=== PATIENT | male | born 1940 | race Caucasian/White ===

== ENCOUNTER 2017-05-20 08:51 | Day surgery (SDC) | payer MEDICARE, BC ==
[2017-05-20] MEDS ORDERED: Sodium Chloride 0.9% 1,000 ML IV SCH (09:00)
[2017-05-20] MEDS ORDERED: Sodium Chloride 0.9% 5 ML Syringe FLUSH PRN (09:00)
[2017-05-20] MEDS ORDERED: fentaNYL 100 MCG/2 ML SDV ONE (09:36)
[2017-05-20] MEDS ORDERED: Propofol 200 MG/20 ML SDV ONE (09:36)
[2017-05-20] MEDS ORDERED: Midazolam 1 MG/ML 2 ML SDV ONE (09:36)
[2017-05-20] MEDS ORDERED: Midazolam 1 MG/ML 2 ML SDV IV ONE (11:22)
[2017-05-20] MEDS ORDERED: fentaNYL 100 MCG/2 ML SDV IV ONE (11:22)
[2017-05-20] MEDS ORDERED: Propofol 200 MG/20 ML SDV IV ONE (11:22)
--- NOTE | 2017-05-20 11:46 | PCM.OPNOTE ---
- General Post-Op/Procedure Note Date of Surgery/Procedure: 05/20/17 Operative Procedure(s): Colonoscopy Findings: normal colonoscopy no evidence of recurrent polyps noted. no definite evidence of malignancy. Anesthesia Technique: MAC Primary Surgeon: Kayode Chand Complications: None Condition: Good Free Text/Narrative:: INFORMED CONSENT: Patient is here today for elective colonoscopy. All aspects of this procedure have been discussed with the patient. All possible complications also, including possibility of perforation, infection, pain, bleeding and unknown complications. In the event of perforation patient may need to have abdominal exploration, colon resection, colostomy and even was discussed. Anesthetic complications were handled by anesthesia department. The patient understands fully well. Patient did not have any further questions for me at the end of my interview. The patient wishes for me to proceed. PREOPERATIVE DIAGNOSIS/INDICATIONS: [history of colon polyps] POSTOPERATIVE DIAGNOSIS: [normal without any recurrence of colon polyps] INSTRUMENT USED: Olympus videocolonoscope. ASA CLASSIFICATION: [2] ANESTHESIA: Continuous EKG, oximetry and intermittent blood pressure and respiratory monitoring were performed throughout the procedure. IV Versed and Fentanyl were administered. PROCEDURE PERFORMED: Colonoscopy POSITIONS OF PATIENT: Left lateral. RECTUM: Normal. SIGMOID COLON: Multiple diverticula seen. DESCENDING COLON: Normal. SPLENIC FLEXURE: Normal. TRANSVERSE COLON: Normal. HEPATIC FLEXURE: Normal. ASCENDING COLON: Normal. CECUM: Normal. ILEOCECAL VALVE: Normal. BIOPSY: None. TOLERANCE: Excellent. COMPLICATIONS: None.
[2017-05-20 13:45] VITALS: BP 125/66
== END 2017-05-20 13:20 | disposition home or self-care (01) ==
LOC: KA.SDS 08:51
PROVIDERS: ATTEND Family Medicine
DX: Z12.11 Encounter for screening for malignant neoplasm of colon (principal); K57.30 Diverticulosis of large intestine without perforation or abscess without bleeding; Z86.010 Personal history of colon polyps; I25.10 Atherosclerotic heart disease of native coronary artery without angina pectoris; I10 Essential (primary) hypertension; E78.00 Pure hypercholesterolemia, unspecified; E11.9 Type 2 diabetes mellitus without complications; E78.5 Hyperlipidemia, unspecified; Z79.82 Long term (current) use of aspirin; Z79.899 Other long term (current) drug therapy; Z88.0 Allergy status to penicillin; Z88.8 Allergy status to other drugs, medicaments and biological substances
CPT/HCPCS: 00810; 82962; G0105; J2250; J2704; J3010; J7030

== ENCOUNTER 2017-10-11 17:45 | Inpatient (IN) | payer MEDICARE, BC ==
[2017-10-11] MEDS ORDERED: Levofloxacin/Dextrose 5%-Water 250 MG in Premix Bag 1 BAG IV SCH (18:00)
[2017-10-11] MEDS ORDERED: guaiFENesin 100 MG/5 ML Soln 10 ML UD Cup PO PRN (18:00)
[2017-10-11] MEDS ORDERED: Levofloxacin/Dextrose 5%-Water 500 MG in Premix Bag 1 BAG IV SCH (18:00)
[2017-10-11] MEDS: Sodium Chloride 0.9% 1,000 ML IV SCH (18:49)
[2017-10-11] MEDS ORDERED: Levofloxacin/Dextrose 5%-Water 500 MG in Premix Bag 1 BAG IV ONE (19:15)
[2017-10-11] MEDS ORDERED: Ibuprofen 600 MG Tab PO PRN (19:51)
[2017-10-11] MEDS: Levofloxacin/Dextrose 5%-Water 500 MG in Premix Bag 1 BAG IV SCH (20:06)
[2017-10-11] MEDS: Calcium Citrate/Vitamin D3 315 MG-250 Unit Tab PO SCH (20:31)
[2017-10-11] MEDS ORDERED: amLODIPine 5 MG Tab PO SCH (21:00)
[2017-10-11] MEDS ORDERED: hydrALAZINE 25 MG Tab PO SCH (21:00)
[2017-10-11] MEDS ORDERED: methylPREDNISolone Sodium Succinate 125 MG/2 ML SDV IVPUSH ONE (21:15)
[2017-10-11] MEDS: Aspirin 81 MG Tab.EC PO SCH (22:11)
[2017-10-11] MEDS: Albuterol/Ipratropium 3.0-0.5 MG/3 ML Neb Soln NEB SCH (22:12)
[2017-10-11] MEDS: Acetaminophen 650 MG Tab.ER PO SCH (22:12)
[2017-10-12] MEDS: Albuterol/Ipratropium 3.0-0.5 MG/3 ML Neb Soln NEB SCH ×4 (06:01→22:28)
[2017-10-12 07:44] LABS: CHLORIDE,CL 99 mmol/L (98-115); SODIUM,NA 136 mmol/L (136-145)
[2017-10-12] MEDS: Sodium Chloride 0.9% 1,000 ML IV SCH (10:34)
[2017-10-12] MEDS: Hydrochlorothiazide 25 MG Tab PO SCH (10:35)
[2017-10-12] MEDS: Aspirin 81 MG Tab.EC PO SCH ×2 (10:35→21:02)
[2017-10-12] MEDS: Rosuvastatin 10 MG Tab PO SCH (10:36)
[2017-10-12] MEDS: Folic Acid 1 MG Tab PO SCH (10:36)
[2017-10-12] MEDS: Fish Oil/Omega-3 Fatty Acids 1 Gm Cap PO SCH (10:36)
[2017-10-12] MEDS: Multivitamins with Minerals/Iron/Folic Acid/Lycopene Tab PO SCH (10:36)
[2017-10-12] MEDS: Calcium Citrate/Vitamin D3 315 MG-250 Unit Tab PO SCH ×2 (10:37→20:52)
[2017-10-12] MEDS: Cholecalciferol (Vitamin D3) 1,000 Unit Tab PO SCH (10:37)
[2017-10-12] MEDS: Lutein/Minerals/Vitamins A, C & E Tab PO SCH (10:37)
[2017-10-12] MEDS: Acetaminophen 650 MG Tab.ER PO SCH ×2 (10:37→21:03)
[2017-10-12] MEDS: amLODIPine 5 MG Tab PO SCH (10:38)
[2017-10-12] MEDS: Finasteride 5 MG Tab PO SCH (10:38)
[2017-10-12] MEDS ORDERED: Levofloxacin/Dextrose 5%-Water 100 ML IV ONE (19:36)
[2017-10-12] MEDS: Levofloxacin/Dextrose 5%-Water 250 MG in Premix Bag 1 BAG IV SCH (19:39)
[2017-10-12] MEDS: Levofloxacin/Dextrose 5%-Water 500 MG in Premix Bag 1 BAG IV SCH (20:47)
[2017-10-12] MEDS ORDERED: amLODIPine 5 MG Tab PO SCH (21:00)
[2017-10-12] MEDS ORDERED: PSYLLIUM PO SCH (21:00)
[2017-10-12] MEDS: Tamsulosin 0.4 MG Cap.ER PO SCH (21:02)
[2017-10-12] MEDS: Niacin 500 MG Tab PO SCH (21:02)
[2017-10-13] MEDS: Sodium Chloride 0.9% 1,000 ML IV SCH (02:11)
[2017-10-13] MEDS: Albuterol/Ipratropium 3.0-0.5 MG/3 ML Neb Soln NEB SCH ×4 (06:00→22:42)
[2017-10-13] MEDS: Rosuvastatin 10 MG Tab PO SCH (08:14)
[2017-10-13] MEDS: Aspirin 81 MG Tab.EC PO SCH ×2 (08:14→20:56)
[2017-10-13] MEDS: Lutein/Minerals/Vitamins A, C & E Tab PO SCH (08:14)
[2017-10-13] MEDS: Calcium Citrate/Vitamin D3 315 MG-250 Unit Tab PO SCH ×2 (08:14→20:56)
[2017-10-13] MEDS: Acetaminophen 650 MG Tab.ER PO SCH ×2 (08:14→20:55)
[2017-10-13] MEDS: Multivitamins with Minerals/Iron/Folic Acid/Lycopene Tab PO SCH (08:14)
[2017-10-13] MEDS: Finasteride 5 MG Tab PO SCH (08:14)
[2017-10-13] MEDS: Cholecalciferol (Vitamin D3) 1,000 Unit Tab PO SCH (08:15)
[2017-10-13] MEDS: Hydrochlorothiazide 25 MG Tab PO SCH (08:15)
[2017-10-13] MEDS: Fish Oil/Omega-3 Fatty Acids 1 Gm Cap PO SCH (08:15)
[2017-10-13] MEDS: Folic Acid 1 MG Tab PO SCH (08:15)
[2017-10-13] MEDS: Niacin 500 MG Tab PO SCH ×2 (08:18→20:56)
[2017-10-13] MEDS ORDERED: TRIAMCINOLONE ACETONIDE NS SCH (09:00)
--- NOTE | 2017-10-13 10:08 | PN ---
10/13/2017 PATIENT NAME: LELA WEBB SUBJECTIVE: This is a 76-year-old gentleman who was having fatigue. Was not feeling well at home. He had a slight cough, but not really a bad cough. The patient was not feeling well. He denies any fever or chills at home. He came in the clinic and found to have a left lower lobe pneumonia. He was admitted to the hospital on Saturday. He seems to be doing better. He is out walking the halls today. He says he does occasionally cough and it is a deep cough, but he really does not cough a lot. He has not had any fever since right after admission when after he was admitted a fever of 102.2. Blood cultures have been negative. At this point, the patient seems to be doing well. He acts that he go home. He has been eating well. OBJECTIVE: VITAL SIGNS: Today, temperature is 98.9, pulse is 64, blood pressure is 122/70, respiratory rate 16, oxygen saturation 94% on room air. GENERAL: This is an elderly white male, in no acute distress. CARDIAC: Heart tones are regular rate and rhythm. No murmurs identified. LUNGS: Lung sounds are clear throughout lung devine except for in the left lower base. He has very loud crackles. ABDOMEN: Soft, nontender, nondistended. Bowel sounds present x4. EXTREMITIES: No pedal edema noted. LABORATORY DATA: The patient's lab work that was obtained today. CBC shows a white count elevated at 13.1, hemoglobin stable at 11.3. The patient's neutrophil percentage is still elevated at 87. Glucose this morning was 169. IMPRESSION AND PLAN: 1. Left lower lobe pneumonia. Blood cultures and sputum cultures are showed no growth at this point. The patient does have some ibuprofen, he can have for fever, but he has not had a fever since right after admission. We will continue with IV antibiotic therapy of Levaquin 500 mg intravenously daily. Continue with DuoNeb every 6 hours. The patient may have Robitussin as needed for cough. The patient seems to be slowly improving. We will repeat a chest x-ray in the morning. 2. History of hypertension with episode of hypotension when he was admitted with dehydration. Plan, the patient's blood pressure has been very stable at this time. We are going to continue to hold his Norvasc and hold his hydralazine at this time. We are continued to give his HCTZ 25 mg daily. We stopped IV fluids this morning. We will continue watch his blood pressure and possibly maybe restart him back on his hypertensive medications tomorrow if his blood pressure starts to raise. 3. History of benign prostatic hypertrophy. Plan, we will continue with Proscar 5 mg daily and Flomax 0.4 mg daily. 4. History of hyperlipidemia. Plan, continue with fish oil with omega-3 along with Crestor 5 mg daily. OVERALL PLAN: The patient seems to be improving. If he is doing well tomorrow morning, may consider discharging him home. /[id number]/MODL MTDD
[2017-10-13] MEDS: Levofloxacin/Dextrose 5%-Water 250 MG in Premix Bag 1 BAG IV SCH (19:39)
[2017-10-13] MEDS: Tamsulosin 0.4 MG Cap.ER PO SCH (20:55)
[2017-10-13] MEDS: Levofloxacin/Dextrose 5%-Water 500 MG in Premix Bag 1 BAG IV SCH (20:57)
[2017-10-14] MEDS: Albuterol/Ipratropium 3.0-0.5 MG/3 ML Neb Soln NEB SCH (05:11)
[2017-10-14 06:33] VITALS: BP 143/69
--- NOTE | 2017-10-14 08:12 | PN ---
10/12/2017PATIENT NAME: LELA WEBB SUBJECTIVE: This is a 76-year-old male patient who presented to the [facility] with concerns about just feeling weak and tired and having no energy. He states he did not really have a cough and he did have a fever. He just was not feeling good. He knew something was wrong. Upon further evaluation, the patient was seen to have a lower lobe pneumonia. The patient then was admitted to the [facility] for further evaluation at that time. OBJECTIVE: VITAL SIGNS: Today temperature is 97.7, pulse is 57, blood pressure is 98/57, respiratory rate is 16, oxygen saturations is 92%. The patient did have a fever last night of 102.2. Ibuprofen was given. GENERAL: This is an elderly white male in no acute distress. CARDIAC: Heart tones are regular rate and rhythm. No murmurs identified. ABDOMEN: Soft, nontender, nondistended. Bowel sounds present x4. EXTREMITIES: No pedal edema. PULMONARY: Lung sounds are clear in upper lobes, diminished at bilateral bases. No wheezing or crackles noted on exam. LABORATORY DATA: The patient's lab work that was drawn this morning. CBC shows white count elevated at 11.8, hemoglobin stable at 12.0. Chemistry panel this morning is unremarkable except for glucose is elevated. The patient's lactic acid that was drawn yesterday was elevated at 2.5. The patient's ALT and AST were both elevated. AST was 163 this morning and ALT was 172. IMPRESSION AND PLAN: 1. Left lower lobe pneumonia. Plan, we will continue with Levaquin 500 mg IV daily along with DuoNeb every six hours. The patient did receive a one time dose of Solu-Medrol last evening 40 mg IV for wheezing. No wheezing today. We will continue with Robitussin as needed for cough and congestion. The patient states his cough is better today. He had a low coughing spell last night. Blood culture and sputum cultures are pending at this time. We will continue with ibuprofen as needed for fever. 2. History of hypertension with acute episode of acute hypotension, most likely due to dehydration. Plan, we are going to continue to hold the patient's Norvasc along with holding his hydralazine. We are going to go ahead and give him his HCTZ 25 mg daily. We will continue with IV hydration of normal saline at 75 mL/h. Monitor blood pressures. 3. History of BPH. Plan, continue with Proscar 5 mg daily along with Flomax 0.4 mg daily. 4. History of hyperlipidemia. Plan, continue with fish oil with omega-3 and Crestor 5 mg daily. OVERALL PLAN: The patient seems to be improving with Levaquin. We will continue with current therapy and plan for discharge possibly on Saturday. /[id number]/MODL MTDD
[2017-10-14] MEDS: Multivitamins with Minerals/Iron/Folic Acid/Lycopene Tab PO SCH (09:16)
[2017-10-14] MEDS: Calcium Citrate/Vitamin D3 315 MG-250 Unit Tab PO SCH (09:16)
[2017-10-14] MEDS: Hydrochlorothiazide 25 MG Tab PO SCH (09:16)
[2017-10-14] MEDS: Fish Oil/Omega-3 Fatty Acids 1 Gm Cap PO SCH (09:16)
[2017-10-14] MEDS: Aspirin 81 MG Tab.EC PO SCH (09:16)
[2017-10-14] MEDS: Folic Acid 1 MG Tab PO SCH (09:16)
[2017-10-14] MEDS: Rosuvastatin 10 MG Tab PO SCH (09:16)
[2017-10-14] MEDS: amLODIPine 5 MG Tab PO SCH (09:17)
[2017-10-14] MEDS: Finasteride 5 MG Tab PO SCH (09:17)
[2017-10-14] MEDS: Lutein/Minerals/Vitamins A, C & E Tab PO SCH (09:17)
[2017-10-14] MEDS: Acetaminophen 650 MG Tab.ER PO SCH (09:17)
[2017-10-14] MEDS: Cholecalciferol (Vitamin D3) 1,000 Unit Tab PO SCH (09:18)
[2017-10-14] MEDS: Niacin 500 MG Tab PO SCH (09:18)
--- NOTE | 2017-10-15 08:10 | DISCH ---
ADMITTING DIAGNOSIS: Left lower lobe pneumonia. DISCHARGE DIAGNOSIS: Mild left basilar pneumonia. BRIEF HISTORY AND ESSENTIAL PHYSICAL FINDINGS: This is a 76-year-old gentleman who was having some fatigue. He was not feeling well at home. He had a slight cough but was not really coughing bad. The patient was not feeling well. He denied any fever or chills at home. He came in clinic and found out that he had a left lower lobe pneumonia. He was admitted to the [facility] on Saturday. The patient did improve with IV antibiotic therapy. He had a fever of 102.2 at the time of admission. SIGNIFICANT LABS XRAYS AND CONSULTATION FINDINGS: The patient's lab work on admission showed a lactic acid elevated at 2.5. Repeat lab work on 10/12/2017 showed a white count elevated at 11.8. Repeat lab work on 10/13/2017 showed a white count elevated at 13.1. Lab work that was obtained on the day of discharge was [id number]. CBC showed a white count within normal range at 8.2, hemoglobin 11.66. Chest x-ray that was obtained on day of discharge would be 10/14/2017. The impression reads mild new left basilar infiltrate. This was read by Dr. Juan Stokes, radiologist. COURSE IN HOSPITAL WITH COMPLICATIONS IF ANY: Throughout the hospital stay, the patient had a fever upon admission, he had no further fevers after that. The patient never did not complain of a cough. He had a very occasional cough. It was a deep cough. He denied coughing up any phlegm. The patient states his energy level improved. He just felt better. He was out walking in the halls with no fatigue or shortness of breath. No fevers. He felt really good, and wanted to go home. CONDITION TREATMENT AND FINAL DISPOSITION ON DISCHARGE AND PROGNOSIS: Condition is stable. Final disposition will be home with his . IMPRESSION AND PLAN: 1. Left lower lobe pneumonia. Plan: The patient's sputum and blood cultures are no growth at this point. I am going to send the patient home on Levaquin 500 mg daily. He does have Robitussin cough syrup, he will take at home. Chest x-ray shows improvement from the one in the clinic with the one today prior to discharge. The patient will follow up in the clinic with Nely Koenig PA-C on Saturday for followup. The patient's white count is in normal range today, 8.2. 2. History of hypertension with some hypotension while in the hospital. The patient's blood pressures returned to normal limits. We will send him back home on his normal medications Norvasc 10 mg daily, hydralazine as ordered, and we will continue the HCTZ 25 mg daily. No change in blood pressure medications. Follow up in the clinic on Saturday. 3. History of BPH. Plan: Continue with the patient's Proscar 5 mg daily along with Flomax 0.4 mg daily. 4. History of hyperlipidemia. Plan: Continue with fish oil with [place]-3 along with Crestor 5 mg daily. OVERALL PLAN: The patient has been doing really well and improving quickly while in the hospital. No shortness of breath. Cough has improved. No fevers. Energy has improved. The patient will follow up in the clinic with Nely Koenig PA-C on Saturday. We will continue with Levaquin 500 mg daily along with cough syrup at home. The patient will possibly need repeat x-ray in clinic on Saturday at followup. /[id number]/MODL MTDD
== END 2017-10-14 10:15 | disposition home or self-care (01) | DRG 195 ==
LOC: KA.MS 18:00
PROVIDERS: ADMIT Physician Assistant Medical; ATTEND Family Medicine
DX: J18.9 Pneumonia, unspecified organism (principal); I10 Essential (primary) hypertension; I95.9 Hypotension, unspecified; E78.5 Hyperlipidemia, unspecified; N40.0 Benign prostatic hyperplasia without lower urinary tract symptoms; E11.9 Type 2 diabetes mellitus without complications; Z79.899 Other long term (current) drug therapy; Z88.0 Allergy status to penicillin; Z88.8 Allergy status to other drugs, medicaments and biological substances
CPT/HCPCS: 36415; 71020; 80053; 82962; 83605; 85025; 87040; 94640; A9270-GY; J1956; J2930; J7030

== ENCOUNTER 2017-10-21 12:40 | Observation (INO) | payer MEDICARE, BC ==
--- NOTE | 2017-10-21 13:32 | EDM.PDOC ---
ED HPI GENERAL MEDICAL PROBLEM - General Chief Complaint: Syncope Stated Complaint: PASSED OUT Time Seen by Provider: 10/21/17 13:10 Source of Information: Reports: Patient, Family () History Limitations: Reports: No Limitations - History of Present Illness INITIAL COMMENTS - FREE TEXT/NARRATIVE: Patient presents to ER after a syncopal episode at work about 1.5 hours ago. He remembers feeling sweaty and put his coat on to step outside for fresh air then fell flat on his face. He did have LOC but denies any pain except the pain in his nose. He specifically denies any pain in chest, jaw, arm, neck, extremities; except he does have stiffness in the back of his neck from the fall. He had two stents placed 11 years ago but denies any AL or other heart problems. No vision changes. - Related Data Allergies Allergy/AdvReac Type Severity Reaction Status Date / Time Penicillins Allergy Rash Verified 10/21/17 13:09 terazosin [From Hytrin] Allergy Fainting Verified 10/21/17 13:09 Home Meds: Home Meds Acetaminophen [Tylenol Arthritis] 650 mg PO BID 05/07/17 [History] Aspirin [Halfprin] 81 mg PO BID 05/07/17 [History] Calcium Carb/Vit D3/Minerals [Cvs Calcium Chewables Plus Tab] 1 each PO DAILY [History] Cholecalciferol (Vitamin D3) [Vitamin D3] 1,000 unit PO DAILY 05/07/17 [History] Finasteride [Proscar] 5 mg PO DAILY 05/07/17 [History] Fish Oil/[place]-3 Fatty Acids [Fish Oil] 1 each PO DAILY 05/07/17 [History] Folic Acid 1 mg PO DAILY 05/07/17 [History] Hydrochlorothiazide 25 mg PO DAILY 05/07/17 [History] Multivitamin with Minerals [Multiple Vitamin] 1 tab PO DAILY 05/07/17 [History] Mv-Mn/FA/Vit K/Lycop/Lut/Zeaxa [Ocuvite Eye + Multi Tablet] 1 each PO DAILY [History] Niacin [Slo-Niacin] 1,000 mg PO BID 05/07/17 [History] Psyllium [Metamucil] 1.04 gm PO BID 05/07/17 [History] Triamcinolone Acetonide [Nasacort] 2 sprays NS DAILY 05/07/17 [History] Valsartan [Diovan] 320 mg PO DAILY 05/07/17 [History] amLODIPine [Norvasc] 10 mg PO BEDTIME 05/07/17 [History] hydrALAZINE [Apresoline] 25 mg PO DAILY 05/07/17 [History] Tamsulosin HCl [Flomax] 0.4 mg PO BEDTIME 05/08/17 [History] Rosuvastatin [Crestor] 5 mg PO DAILY 05/20/17 [History] Levofloxacin [Levaquin] 500 mg PO Q24H 5 Days #5 tablet 10/14/17 [Rx] Past Medical History HEENT History: Reports: Cataract, Hard of Hearing, Impaired Vision, Macular Degeneration Cardiovascular History: Reports: CAD, High Cholesterol, Hypertension, Stents Gastrointestinal History: Reports: Colon Polyp Genitourinary History: Reports: Prostate Disorder Endocrine/Metabolic History: Reports: Diabetes, Type II Oncologic (Cancer) History: Reports: Prostate - Infectious Disease History Infectious Disease History: Reports: Chicken Pox, Measles, Mumps, Rubella - Past Surgical History HEENT Surgical History: Reports: Cataract Surgery Cardiovascular Surgical History: Reports: Coronary Artery Stent GI Surgical History: Reports: Cholecystectomy, Colonoscopy, Hernia, Abdominal Male Surgical History: Reports: Prostate Biopsy, Other (See Below) Other Male Surgeries/Procedures: Kryo surgery Social & Family History - Family History Family Medical History: Noncontributory - Tobacco Use Smoking Status *Q: Never Smoker Second Hand Smoke Exposure: Yes - Caffeine Use Caffeine Use: Reports: Coffee, Soda, Tea - Recreational Drug Use Recreational Drug Use: No ED ROS GENERAL - Review of Systems Review Of Systems: See Below Constitutional: Reports: Diaphoresis. Denies: Fever, Chills, Weakness HEENT: Denies: Ear Discharge, Throat Pain, Vision Change Respiratory: Denies: Shortness of Breath, Cough Cardiovascular: Reports: Syncope. Denies: Chest Pain GI/Abdominal: Denies: Abdominal Pain, Anorexia, Nausea, Vomiting : Reports: No Symptoms Musculoskeletal: Denies: Neck Pain, Shoulder Pain, Arm Pain, Back Pain, Hand Pain, Leg Pain, Foot Pain, Joint Pain Skin: Reports: Diaphoresis. Denies: Cyanosis, Jaundice, Mottled, Pallor Neurological: Reports: Syncope. Denies: Confusion, Dizziness, Headache, Seizure , Trouble Speaking Psychiatric: Denies: Agitation, Anxiety, Confusion - Physical Exam Exam: See Below Exam Limited By: No Limitations General Appearance: Alert, WD/WN, No Apparent Distress Eye Exam: Bilateral Eye: EOMI (with full visual devine), Normal Inspection, PERRL Ears: Normal External Exam, Normal Canal, Hearing Grossly Normal, Normal TMs Nose: Normal Inspection, No Blood. No: Nasal Deformity Throat/Mouth: Normal Inspection, Normal Lips, Normal Oropharynx, Normal Voice, No Airway Compromise Head Exam: Normocephalic, Facial Abrasions (nose, upper lip and left cheek) Neck: Supple, Tender Lateral, Other (currently in C-collar that was placed on ER arrival; CT of c-spine pending. After normal C-spine CT C-collar was removed and neck re-examined with full pain-free ROM and no midline tenderness.) . No: Tender Midline Respiratory/Chest: No Respiratory Distress, Lungs Clear, Normal Breath Sounds, No Accessory Muscle Use, Chest Non-Tender, Other (After WBC of 16.4 was found I re-auscultated the lungs which are actually quite clear with only mildly decreased lung sounds in left lung base.) Cardiovascular: Normal Peripheral Pulses, Regular Rate, Rhythm, No Edema, No Gallop, No Murmur GI/Abdominal: Normal Bowel Sounds, Soft, Non-Tender, No Organomegaly, No Distention Neuro Exam (Abbreviated): Alert, Oriented, CN II-XII Intact, Normal Cognition, No Motor/Sensory Deficits Back Exam: Normal Inspection, Full Range of Motion. No: Paraspinal Tenderness, Vertebral Tenderness Extremities: Normal Inspection, Normal Range of Motion, Non-Tender, No Pedal Edema, Other (5/5 strength bilat) Psychiatric: Normal Affect, Normal Mood Skin Exam: Warm, Dry, Intact, Normal Color, No Rash Course - Vital Signs Last Recorded V/S: Last Vital Signs Temp 95.6 F 10/21/17 12:57 Pulse 82 10/21/17 15:22 Resp 12 10/21/17 15:22 BP 134/50 L 10/21/17 15:22 Pulse Ox 95 10/21/17 15:22 - Orders/Labs/Meds Orders: Active Orders 24 hr Category Date Time Status EKG Documentation Completion [RC] ASDIRECTED Care 10/21/17 13:33 Active Cervical Spine wo Cont [CT] Stat Exams 10/21/17 13:05 Taken Chest 2V [CR] Stat Exams 10/21/17 14:25 Taken Fingers Third Digit Lt F2 [CR] Stat Exams 10/21/17 15:04 Ordered Head wo Cont [CT] Stat Exams 10/21/17 13:05 Ordered CULTURE BLOOD [BC] Stat Lab 10/21/17 14:26 Ordered CULTURE BLOOD [BC] Stat Lab 10/21/17 14:26 Ordered LACTIC ACID [CHEM] Stat Lab 10/21/17 14:25 Ordered UA W/MICROSCOPIC [URIN] Stat Lab 10/21/17 14:25 Uncollected Blood Culture x2 Reflex Set [OM.PC] Stat Oth 10/21/17 14:25 Ordered EKG 12 Lead [EK] Routine Ther 10/21/17 13:33 Ordered Medication Orders Acetaminophen (Tylenol Arthritis Pain) 650 mg PO BID [facility] Aspirin (Halfprin) 81 mg PO BID [facility] Finasteride (Proscar) 5 mg PO DAILY [facility] Hydralazine HCl (Apresoline) 25 mg PO DAILY [facility] Hydrochlorothiazide (Hydrochlorothiazide) 25 mg PO DAILY [facility] Levofloxacin (Levaquin) 500 mg PO Q24H [facility] Multivitamins/Minerals (Ocuvite) 1 each PO DAILY [facility] Niacin (Niacin) 1,000 mg PO BID [facility] Non-Formulary Medication (Amlodipine [Norvasc]) 10 mg PO BEDTIME [facility] Non-Formulary Medication (Calcium Carb/Vit D3/Minerals [Cvs Calcium Chewables Plus Tab]) 1 each PO DAILY [facility] Non-Formulary Medication (Cholecalciferol (Vitamin D3) [Vitamin D3]) 1,000 unit PO DAILY [facility] Non-Formulary Medication (Triamcinolone Acetonide [Nasacort]) 2 sprays NS DAILY [facility] Psyllium Husk (Metamucil Sugar Free) 1 pkt PO BID [facility] Rosuvastatin Calcium (Crestor) 5 mg PO DAILY [facility] Tamsulosin HCl (Flomax) 0.4 mg PO BEDTIME [facility] Valsartan (Diovan) 320 mg PO DAILY [facility] Labs: Laboratory Tests 10/21/17 10/21/17 Range/Units 13:45 13:45 WBC 16.4 H (5.0-10.0) 10^3/uL RBC 4.70 (4.50-6.00) 10^6/uL Hgb 14.0 (13.0-17.0) g/dL Hct 42.7 (40.0-52.0) % MCV 90.7 (82.0-92.0) fL MCH 29.7 (27.0-31.0) pg MCHC 32.7 (32.0-36.0) g/dL RDW 12.4 (11.5-14.5) % Plt Count 352 H (150-300) 10^3/uL MPV 7.4 (7.4-10.4) fL Neut % (Auto) 88.0 H (50.0-70.0) % Lymph % (Auto) 7.7 L (20.0-40.0) % [place] % (Auto) 3.6 (2.0-8.0) % Eos % (Auto) 0.1 L (1.0-3.0) % Baso % (Auto) 0.6 (0.0-1.0) % Neut # (Auto) 14.4 H (2.5-7.0) 10^3/uL Lymph # (Auto) 1.3 (1.0-4.0) 10^3/uL [place] # (Auto) 0.6 (0.1-0.8) 10^3/uL Eos # (Auto) 0.0 L (0.1-0.3) 10^3/uL Baso # (Auto) 0.1 (0.0-0.1) 10^3/uL Sodium 141 (136-145) mmol/L Potassium 5.1 (3.3-5.3) mmol/L Chloride 104 (98-115) mmol/L Carbon Dioxide 28.6 (21.0-32.0) mmol/L BUN 27 H (6-25) mg/dL Creatinine 1.20 H (0.51-1.17) mg/dL Est Cr Clr Drug Dosing 49.08 mL/min Estimated GFR (MDRD) 59 mL/min Glucose 134 H (70-110) mg/dL Calcium 9.6 (8.7-10.3) mg/dL Troponin I 0.05 (0.00-0.070) ng/mL Meds: Medications Generic Name Dose Route Start Last Admin Trade Name Freq PRN Reason Stop Dose Admin Acetaminophen 650 mg 10/21/17 21:00 Tylenol Arthritis Pain PO BID [facility] Aspirin 81 mg 10/21/17 21:00 Halfprin PO BID [facility] Finasteride 5 mg 10/22/17 09:00 Proscar PO DAILY [facility] Hydralazine HCl 25 mg 10/22/17 09:00 Apresoline PO DAILY [facility] Hydrochlorothiazide 25 mg 10/22/17 09:00 Hydrochlorothiazide PO DAILY [facility] Levofloxacin 500 mg 10/21/17 15:15 Levaquin PO Q24H [facility] Multivitamins/Minerals 1 each 10/22/17 09:00 Ocuvite PO DAILY [facility] Niacin 1,000 mg 10/21/17 21:00 Niacin PO BID [facility] Non-Formulary Medication 10 mg 10/21/17 21:00 Amlodipine [Norvasc] PO BEDTIME [facility] Non-Formulary Medication 1 each 10/22/17 09:00 Calcium Carb/Vit D3/Minerals [Cvs Calcium Chewables Plus Tab] PO DAILY [facility] Non-Formulary Medication 1,000 unit 10/22/17 09:00 Cholecalciferol (Vitamin D3) [Vitamin D3] PO DAILY [facility] Non-Formulary Medication 2 sprays 10/22/17 09:00 Triamcinolone Acetonide [Nasacort] NS DAILY [facility] Psyllium Husk 1 pkt 10/21/17 21:00 Metamucil Sugar Free PO BID [facility] Rosuvastatin Calcium 5 mg 10/22/17 09:00 Crestor PO DAILY [facility] Tamsulosin HCl 0.4 mg 10/21/17 21:00 Flomax PO BEDTIME [facility] Valsartan 320 mg 10/22/17 09:00 Diovan PO DAILY [facility] - Re-Assessments/Exams Free Text/Narrative Re-Assessment/Exam: 10/21/17 14:17 WBC is 16.4 and one week ago (when discharged from hospitalization with pneumonia) was 8.2, ANC is 14.4 and was 6.4. 10/21/17 14:35 Re-examination finds quite normal lung sounds with mildly decreased sounds at left lung base. Will get CXR and UA to further evaluate infectious etiology along with blood cultures, lactic acid. Will likely need to admit. Patient states he has been taking the daily Levaquin 500 mg that he was discharged on a week ago and has two tablets left. 10/21/17 15:[address] Graham who feels it would be appropriate to either admit for observation or close follow up tomorrow in clinic. One of the factors for observation being his syncopal episode. After discussing with patient and his will admit for observation. Pt also mentions that he forgot he dislocated his left long finger at the PIP joint when he fell. He pulled this back into position and it is just slightly sore right now. On exam it has full ROM with mild ecchymosis volarly at the PIP and slight pain on full flexion. Will get xray and admit for obs. Lactic acid and finger xray still pending at admission. Departure - Departure Time of Disposition: 15:17 Disposition: Refer to Observation Condition: Good Clinical Impression: Neutrophilic leukocytosis Episode of syncope Qualifiers: Encounter type: initial encounter - Discharge Information - My Orders Last 24 Hours: My Active Orders 10/21/17 13:05 Cervical Spine wo Cont [CT] Stat Head wo Cont [CT] Stat 10/21/17 13:33 EKG Documentation Completion [RC] ASDIRECTED EKG 12 Lead [EK] Routine 10/21/17 14:25 Chest 2V [CR] Stat LACTIC ACID [CHEM] Stat UA W/MICROSCOPIC [URIN] Stat Blood Culture x2 Reflex Set [OM.PC] Stat 10/21/17 14:26 CULTURE BLOOD [BC] Stat CULTURE BLOOD [BC] Stat 10/21/17 15:04 Fingers Third Digit Lt F2 [CR] Stat - Assessment/Plan Last 24 Hours: My Active Orders 10/21/17 13:05 Cervical Spine wo Cont [CT] Stat Head wo Cont [CT] Stat 10/21/17 13:33 EKG Documentation Completion [RC] ASDIRECTED EKG 12 Lead [EK] Routine 10/21/17 14:25 Chest 2V [CR] Stat LACTIC ACID [CHEM] Stat UA W/MICROSCOPIC [URIN] Stat Blood Culture x2 Reflex Set [OM.PC] Stat 10/21/17 14:26 CULTURE BLOOD [BC] Stat CULTURE BLOOD [BC] Stat 10/21/17 15:04 Fingers Third Digit Lt F2 [CR] Stat
[2017-10-21] MEDS ORDERED: Levofloxacin 500 MG Tab PO SCH (15:15)
[2017-10-21] MEDS ORDERED: Lidocaine 2% 100 MG/5 ML Syringe IVPUSH PRN (16:10)
[2017-10-21] MEDS ORDERED: Atropine 0.1 MG/ML 10 ML Syringe IVPUSH PRN (16:10)
[2017-10-21] MEDS ORDERED: EPINEPHrine 1:10,000 1 MG/10 ML Syringe IVPUSH PRN (16:10)
[2017-10-21] MEDS ORDERED: Nitroglycerin 0.4 MG Tab.SL SL PRN (16:10)
--- NOTE | 2017-10-21 19:07 | PCM.HP ---
H&P History of Present Illness - General Date of Service: 10/21/17 Admit Problem/Dx: Syncope Source of Information: Patient, Old Records, Provider History Limitations: Reports: No Limitations - History of Present Illness Initial Comments - Free Text/Narative: Mr. Funes reports feeling at his baseline until this morning when he felt lightheaded a few times with ambulation. Around 1140, he felt lightheaded and "clammy" after standing and walked outside and fell forward onto his face. He briefly had LOC, but otherwise had no preceding or surrounding symptoms, including any headache, vision change, chest pain, palpitations, or shortness of breath. He was not noted to have any seizure like activity or have loss of bowel or bladder function. He was evaluated in the [facility] ED where work-up was notable for unremarkable VS and EKG, normal head CT/C-spine CT/CXR, elevated WBC, and elevated creatinine. Upon my evaluation of the patient on the evening of admission, he states he feels completely at his baseline and has had no untoward symptoms since arrival. Since recent discharge from the hospital for pneumonia, he has had resolution of respiratory symptoms and has two doses left of levofloxacin. He has been taking his other home medications as scheduled without difficulty. He does state that his blood pressure has been running on the low side at times lately and he has intermittently felt lightheaded with standing quickly. He also admits to having a little less fluid intake in the last 24 hours. He denies any other symptoms and otherwise feels quite well. He denies a history of syncopal episodes. - Related Data Allergies/Adverse Reactions: Allergies Allergy/AdvReac Type Severity Reaction Status Date / Time Penicillins Allergy Rash Verified 10/21/17 13:09 terazosin [From Hytrin] Allergy Fainting Verified 10/21/17 13:09 Home Medications: Home Meds Acetaminophen [Tylenol Arthritis] 650 mg PO BID 05/07/17 [History] Aspirin [Halfprin] 81 mg PO BID 05/07/17 [History] Calcium Carb/Vit D3/Minerals [Cvs Calcium Chewables Plus Tab] 1 each PO DAILY [History] Cholecalciferol (Vitamin D3) [Vitamin D3] 1,000 unit PO DAILY 05/07/17 [History] Finasteride [Proscar] 5 mg PO DAILY 05/07/17 [History] Fish Oil/[place]-3 Fatty Acids [Fish Oil] 1 each PO DAILY 05/07/17 [History] Folic Acid 1 mg PO DAILY 05/07/17 [History] Hydrochlorothiazide 25 mg PO DAILY 05/07/17 [History] Multivitamin with Minerals [Multiple Vitamin] 1 tab PO DAILY 05/07/17 [History] Mv-Mn/FA/Vit K/Lycop/Lut/Zeaxa [Ocuvite Eye + Multi Tablet] 1 each PO DAILY [History] Niacin [Slo-Niacin] 1,000 mg PO BID 05/07/17 [History] Psyllium [Metamucil] 1.04 gm PO BID 05/07/17 [History] Triamcinolone Acetonide [Nasacort] 2 sprays NS DAILY 05/07/17 [History] Valsartan [Diovan] 320 mg PO DAILY 05/07/17 [History] amLODIPine [Norvasc] 10 mg PO BEDTIME 05/07/17 [History] Tamsulosin HCl [Flomax] 0.4 mg PO BEDTIME 05/08/17 [History] Rosuvastatin [Crestor] 5 mg PO DAILY 05/20/17 [History] Levofloxacin [Levaquin] 500 mg PO Q24H 5 Days #5 tablet 10/14/17 [Rx] Past Medical History HEENT History: Reports: Cataract, Hard of Hearing, Impaired Vision, Macular Degeneration Cardiovascular History: Reports: CAD, High Cholesterol, Hypertension, Stents Gastrointestinal History: Reports: Colon Polyp Genitourinary History: Reports: Prostate Disorder Endocrine/Metabolic History: Reports: Diabetes, Type II Oncologic (Cancer) History: Reports: Prostate - Infectious Disease History Infectious Disease History: Reports: Chicken Pox, Measles, Mumps, Rubella - Past Surgical History HEENT Surgical History: Reports: Cataract Surgery Cardiovascular Surgical History: Reports: Coronary Artery Stent GI Surgical History: Reports: Cholecystectomy, Colonoscopy, Hernia, Abdominal Male Surgical History: Reports: Prostate Biopsy, Other (See Below) Other Male Surgeries/Procedures: Kryo surgery Social & Family History - Family History Family Medical History: Noncontributory - Tobacco Use Smoking Status *Q: Never Smoker Second Hand Smoke Exposure: No - Caffeine Use Caffeine Use: Reports: Coffee - Alcohol Use Days Per Week of Alcohol Use: 0 - Recreational Drug Use Recreational Drug Use: No H&P Review of Systems - Review of Systems: Review Of Systems: See Below General: Denies: Fever, Chills, Malaise, Weakness, Fatigue, Night Sweats, Diaphoresis, Decreased Appetite, Weight Loss, Weight Gain HEENT: Denies: Ear Pain, Headaches, Post Nasal Drip, Sinus Congestion, Vertigo, Visual Changes Pulmonary: Denies: Shortness of Breath, Wheezing, Pleuritic Chest Pain, Cough, Sputum, Hemoptysis Cardiovascular: Denies: Chest Pain, Palpitations, Dyspnea on Exertion, Edema Gastrointestinal: Denies: Abdominal Pain, Constipation, Diarrhea, Decreased Appetite Genitourinary: Denies: Dysuria, Frequency, Burning, Pain Musculoskeletal: Denies: Neck Pain, Shoulder Pain, Arm Pain, Back Pain, Leg Pain , Joint Swelling, Muscle Pain, Muscle Stiffness Skin: Denies: Bruising, Rash, Wound Psychiatric: Denies: Confusion, Depression, Anxiety, Hallucinations (Auditory) Neurological: Denies: Confusion, Dizziness, Headache, Numbness, Paresthesia, Seizure, Tingling, Tremors, Trouble Speaking, Difficulty Walking, Weakness, Change in Speech, Gait Disturbance Exam - Exam Exam: See Below - Vital Signs Vital Signs: Last Vital Signs Temp 37.1 C 10/21/17 18:44 Pulse 90 10/21/17 18:44 Resp 16 10/21/17 18:44 BP 129/78 10/21/17 18:44 Pulse Ox 95 10/21/17 18:44 Weight: 81.374 kg - Exam Physical Exam Comments:: GENERAL: Well-appearing elderly white male sitting in bedside chair in no acute distress. HEENT: Normocephalic, atraumatic. Conjunctiva clear, pupils equal round and reactive to light, extraocular movements intact with mild lateral nystagmus bilaterally. Nares patent without discharge. Mucous membranes moist, posterior pharynx unremarkable. NECK: Supple, no masses. CV: Regular rate and rhythm, no murmurs, rubs, or gallops. 2+ radial pulses. PULMONARY: Normal effort, clear to auscultation bilaterally, no wheezes, rales, or rhonchi. ABDOMEN: Positive bowel sounds, soft, nontender, nondistended. EXTREMITIES: No edema, cyanosis, or clubbing. MUSCULOSKELETAL: Moves all extremities well. NEUROLOGICAL: CN II-XII intact. Moves all extremities well. DERMATOLOGIC: No rashes or suspicious lesions in exposed areas. PSYCHIATRIC: Alert, interactive, appropriate affect. - Patient Data Lab Results Last 24 hrs: Laboratory Results - last 24 hr 10/21/17 Range/Units 15:15 Lactic Acid 1.7 (0.4-2.0) mmol/L Result Diagrams: 10/21/17 13:45 10/21/17 13:45 *Q Meaningful Use (ADM) - VTE *Q VTE Criteria *Q: - Stroke *Q Stroke Criteria *Q: - AMI *Q AMI Criteria *Q: Problem List Initiated/Reviewed/Updated: Yes Orders Last 24hrs: Active Orders 24 hr Category Date Time Status Cardiac Monitoring [RC] . DIRECTED Care 10/21/17 16:02 Active Heart Healthy Diet [DIET] Diet 10/21/17 Dinner Active Acetaminophen [Tylenol Arthritis Pain] Med 10/21/17 21:00 Active 650 mg PO BID Aspirin [Halfprin] Med 10/21/17 21:00 Active 81 mg PO BID Atropine [Atropine 0.1 MG/ML] Med 10/21/17 16:10 Active 0 mg IVPUSH ASDIRECTED PRN Calcium Citrate/Vitamin D3 [Calcium Citrate + D] Med 10/22/17 09:00 Active 2 tab PO DAILY Cholecalciferol (Vitamin D3) [Vitamin D3] Med 10/22/17 09:00 Active 1,000 units PO DAILY EPINEPHrine [EPINEPHrine 1:10,000] Med 10/21/17 16:10 Active 1 mg IVPUSH ASDIRECTED PRN Finasteride [Proscar] Med 10/22/17 09:00 Active 5 mg PO DAILY Hydrochlorothiazide Med 10/22/17 09:00 Active 25 mg PO DAILY Levofloxacin [Levaquin] Med 10/21/17 15:15 Hold 500 mg PO Q24H Lidocaine 2% [Xylocaine 2%] Med 10/21/17 16:10 Active 0 mg IVPUSH ASDIRECTED PRN Lutein/Minerals/Vit A,C & E [Ocuvite] Med 10/22/17 09:00 Active 1 each PO DAILY Niacin Med 10/21/17 21:00 Active 1,000 mg PO BID Nitroglycerin [Nitrostat] Med 10/21/17 16:10 Active 0.4 mg SL ASDIRECTED PRN Psyllium Husk/Aspartame [Metamucil Sugar Free] Med 10/21/17 21:00 Active 1 pkt PO BID Rosuvastatin [Crestor] Med 10/22/17 09:00 Active 5 mg PO DAILY Sodium Chloride 0.9% [Normal Saline] 1,000 ml Med 10/21/17 16:04 Active IV ASDIRECTED Tamsulosin [Flomax] Med 10/21/17 21:00 Active 0.4 mg PO BEDTIME Triamcinolone Acetonide [Nasacort] Med 10/22/17 09:00 Active 2 sprays NS DAILY Valsartan [Diovan] Med 10/22/17 09:00 Active 320 mg PO DAILY amLODIPine [Norvasc] Med 10/21/17 21:00 Active 10 mg PO BEDTIME Medication Orders Acetaminophen (Tylenol Arthritis Pain) 650 mg PO BID [facility] Amlodipine Besylate (Norvasc) 10 mg PO BEDTIME [facility] Aspirin (Halfprin) 81 mg PO BID [facility] Atropine Sulfate (Atropine 0.1 Mg/Ml) 0 mg IVPUSH ASDIRECTED PRN PRN Reason: Heart Calcium Citrate (Calcium Citrate + D) 2 tab PO DAILY [facility] Cholecalciferol (Vitamin D3) 1,000 units PO DAILY [facility] Epinephrine HCl (Epinephrine 1:10,000) 1 mg IVPUSH ASDIRECTED PRN PRN Reason: Heart Finasteride (Proscar) 5 mg PO DAILY [facility] Hydrochlorothiazide (Hydrochlorothiazide) 25 mg PO DAILY [facility] Sodium Chloride (Normal Saline) 1,000 mls @ 125 mls/hr IV ASDIRECTED [facility] Levofloxacin (Levaquin) 500 mg PO Q24H [facility] Last Admin: 10/21/17 17:39 Dose: Lidocaine HCl (Xylocaine 2%) 0 mg IVPUSH ASDIRECTED PRN PRN Reason: Heart Multivitamins/Minerals (Ocuvite) 1 each PO DAILY [facility] Niacin (Niacin) 1,000 mg PO BID [facility] Nitroglycerin (Nitrostat) 0.4 mg SL ASDIRECTED PRN PRN Reason: Heart Non-Formulary Medication (Triamcinolone Acetonide [Nasacort]) 2 sprays NS DAILY [facility] Psyllium Husk (Metamucil Sugar Free) 1 pkt PO BID [facility] Rosuvastatin Calcium (Crestor) 5 mg PO DAILY [facility] Tamsulosin HCl (Flomax) 0.4 mg PO BEDTIME [facility] Valsartan (Diovan) 320 mg PO DAILY [facility] Assessment/Plan Comment:: Mr. Funes is a 76yoM with history notable for recent admission for pneumonia and history of CAD s/p remote stenting who sustained syncopal episode on the morning of 10/21/17. In the ED, work-up was notable for unremarkable VS and EKG, normal head CT/C-spine CT/CXR, elevated WBC, and elevated creatinine. Due to concern regarding these findings in the setting of his history, he was admitted for observation. # Syncope # Acute kidney injury # Leukocytosis # Community acquired pneumonia History and work-up most consistent with vasovagal event as the etiology of his syncope. This is corroborated by the mild acute kidney injury present on labs and lack of other concerning historical details or work-up. The leukocytosis is not obviously infectious in origin given the lack of infectious symptoms or signs and otherwise unremarkable work-up; he did receive steroids during his last hospitalization which could be contributing, as could the acute stress reaction of the syncopal event. Pulmonary exam and CXR do not suggest inadequately treated pneumonia and the patient denies any respiratory complaints. - Cardiac monitoring - NS @ 125cc/hr - Continue levofloxacin - Recheck CBC and BMP in AM - Await blood culture results Chronic conditions: # Coronary artery disease # Hypertension # Hyperlipidemia # BPH # Chronic rhinitis - Continue home medications Hospitalization details: # FEN: NS @ 125cc/hr. Electrolytes normal. Heart healthy diet. # PPX: Will initiate tomorrow if not discharged. # Code status: FULL. # Emergency contact: . # Disposition: Admit to observation status for above conditions. Anticipate discharge to home, likely tomorrow, pending clinical course.
[2017-10-21] MEDS: Aspirin 81 MG Tab.EC PO SCH (20:49)
[2017-10-21] MEDS: Psyllium Husk Powder Sugar Free 5.85 GM Packet PO SCH (20:50)
[2017-10-21] MEDS: Acetaminophen 650 MG Tab.ER PO SCH (20:50)
[2017-10-21] MEDS: Niacin 500 MG Tab PO SCH (20:59)
[2017-10-21] MEDS ORDERED: amLODIPine 5 MG Tab PO SCH (21:00)
[2017-10-21] MEDS ORDERED: Tamsulosin 0.4 MG Cap.ER PO SCH (21:00)
[2017-10-21] MEDS: Sodium Chloride 0.9% 1,000 ML IV SCH (22:30)
[2017-10-22] MEDS: Sodium Chloride 0.9% 1,000 ML IV SCH (01:05)
[2017-10-22 07:59] LABS: CHLORIDE,CL 106 mmol/L (98-115); SODIUM,NA 141 mmol/L (136-145)
[2017-10-22] MEDS: Acetaminophen 650 MG Tab.ER PO SCH (08:28)
[2017-10-22] MEDS: Psyllium Husk Powder Sugar Free 5.85 GM Packet PO SCH (08:29)
[2017-10-22] MEDS: Aspirin 81 MG Tab.EC PO SCH (08:29)
[2017-10-22] MEDS: Niacin 500 MG Tab PO SCH (08:32)
[2017-10-22] MEDS ORDERED: Rosuvastatin 10 MG Tab PO SCH (09:00)
[2017-10-22] MEDS ORDERED: Finasteride 5 MG Tab PO SCH (09:00)
[2017-10-22] MEDS ORDERED: Lutein/Minerals/Vitamins A, C & E Tab PO SCH (09:00)
[2017-10-22] MEDS ORDERED: TRIAMCINOLONE ACETONIDE NS SCH (09:00)
[2017-10-22] MEDS ORDERED: Calcium Citrate/Vitamin D3 315 MG-250 Unit Tab PO SCH (09:00)
[2017-10-22] MEDS ORDERED: Hydrochlorothiazide 25 MG Tab PO SCH (09:00)
[2017-10-22] MEDS ORDERED: Cholecalciferol (Vitamin D3) 1,000 Unit Tab PO SCH (09:00)
[2017-10-22] MEDS ORDERED: hydrALAZINE 25 MG Tab PO SCH (09:00)
[2017-10-22 10:35] VITALS: BP 123/64
--- NOTE | 2017-10-23 08:31 | DISCH ---
He was admitted into observation on 10/21/2017, discharged from observation 10/22/2017. FINAL DIAGNOSES: 1. Syncope, likely vasovagal in nature. 2. Acute kidney injury. 3. Leukocytosis. 4. Community-acquired pneumonia. Other chronic conditions include coronary artery disease, hypertension, hyperlipidemia, BPH, and chronic rhinitis. BRIEF HISTORY: Edd is a 76-year-old gentleman who was recently admitted for pneumonia. He continues on Levaquin. He does have a history of coronary artery disease with remote stenting. He did sustain a syncope episode the morning of admission. He fell on his face and the ED workup was notable for unremarkable vital signs and EKG. He did have a head CT. See report below. He had elevated white count; however, he had been on steroids. He does have a history of recent pneumonia with elevated creatinine level. He was admitted in observation overnight, given IV fluids, cardiac monitoring. HOSPITAL COURSE: Hospital course was very short. He did well. He had no ectopy or aberrancy on overnight telemetry. He had no shortness of breath. No chest pain. No more episodes of syncope. He did receive isotonic saline fluids at 125 an hour. We continued with Levaquin. He did well. He was ready for discharge. He did have a white count of 16.4 on admission, it was down to 10.8. Neutrophilia with shifting right, now 76%, high of 88% on admission. Sodium, potassium, BUN, and creatinine are now normal. It was 27 and 1.20 on admission. Glucose 138. Lactic acid was normal. Calcium and troponin were normal and negative. DIAGNOSTICS: CT of the cervical spine without IV contrast shows no acute fracture other than grade 1 anterolisthesis with degenerative changes chronic. EKG, I reviewed, normal sinus rhythm. QTc normal at 460. Chest x-ray, no acute process, no pneumothorax, no effusions. PHYSICAL EXAM ON DISCHARGE: VITAL SIGNS: Temperature 98.0, blood pressure 112/61, heart rate 75 and regular, O2 sats 94%, respiratory rate 16. GENERAL: Patient is alert and oriented, lucid. NECK: Negative carotid bruits. CARDIOVASCULAR: Regular rate and rhythm. LUNGS: Clear. NOSE: Does have slightly edematous and erythematous nose with some abrasions noted. LABORATORY DATA: Microbiology negative. MEDICATIONS: No medication changes. DISPOSITION: The patient desires to be discharged from observation. He will follow myself next week. He is to report any syncope episodes. He has no carotid bruits. Does have a history of coronary stents. Two years ago, he did have a carotid ultrasound. We will recommend repeating carotid ultrasound on outpatient schedule. I will see him next week. /[id number]/MODL
== END 2017-10-22 11:10 | disposition home or self-care (01) ==
LOC: KA.ED 12:40 → KA.MS 15:09
PROVIDERS: ADMIT Physician Assistant Surgical; ATTEND Family Medicine
DX: R55 Syncope and collapse (principal); N17.9 Acute kidney failure, unspecified; D72.829 Elevated white blood cell count, unspecified; J18.9 Pneumonia, unspecified organism; I25.10 Atherosclerotic heart disease of native coronary artery without angina pectoris; I10 Essential (primary) hypertension; E78.5 Hyperlipidemia, unspecified; E11.9 Type 2 diabetes mellitus without complications; N40.0 Benign prostatic hyperplasia without lower urinary tract symptoms; J31.0 Chronic rhinitis; Z88.0 Allergy status to penicillin; Z88.8 Allergy status to other drugs, medicaments and biological substances; Z79.82 Long term (current) use of aspirin; Z79.899 Other long term (current) drug therapy; Z90.49 Acquired absence of other specified parts of digestive tract; Z95.5 Presence of coronary angioplasty implant and graft
CPT/HCPCS: 36415; 70450; 71020; 72125; 73140; 80048; 83605; 84484; 85025; 87040; 93005; 96360; 96361; 99284; A9270; G0378; J7030; 99283

== ENCOUNTER 2018-08-03 15:57 | Emergency (ER) | payer MEDICARE, BC ==
[2018-08-03 16:09] VITALS: BP 142/68
[2018-08-03] MEDS ORDERED: Sodium Chloride 0.9% 5 ML Syringe FLUSH PRN (16:27)
--- NOTE | 2018-08-03 16:43 | EDM.PDOC ---
ED HPI GENERAL MEDICAL PROBLEM - General Chief Complaint: Upper Extremity Injury/Pain Stated Complaint: RIGHT SHOULDER PAIN Time Seen by Provider: 08/03/18 16:03 Source of Information: Reports: Patient History Limitations: Reports: No Limitations - History of Present Illness INITIAL COMMENTS - FREE TEXT/NARRATIVE: Patient is a 77-year-old gentleman who presents to the emergency department this afternoon with a complaint of right shoulder and right chest pain. Patient states that the shoulder pain began about 3-4 weeks ago, over last few days his progressed to right chest and down right arm. 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 States initially thought this was the issue and did go to chiropractor, however, did not get relief. He went to the chiropractor on Saturday, but symptoms became worse yesterday and today. Patient and are now concerned about chest pain. Patient denies fever, shortness of breath, similar symptoms in the past, nausea, vomiting, diarrhea, headache, blurry vision, palpitations, or recent change in any medication. Onset: Gradual Duration: Week(s): Location: Reports: Chest, Upper Extremity, Right Quality: Reports: Ache Severity: Mild Improves with: Reports: None Worsens with: Reports: Movement Context: Reports: Activity Associated Symptoms: Reports: Chest Pain. Denies: Fever/Chills, Nausea/Vomiting , Shortness of Breath Right Shoulder Pain Score (Numeric/FACES): 8 - Related Data Allergies Allergy/AdvReac Type Severity Reaction Status Date / Time Penicillins Allergy Rash Verified 08/03/18 16:09 terazosin [From Hytrin] Allergy Fainting Verified 08/03/18 16:09 Home Meds: Home Meds Acetaminophen [Tylenol Arthritis] 650 mg PO BID 05/07/17 [History] Aspirin [Halfprin] 81 mg PO BID 05/07/17 [History] Cholecalciferol (Vitamin D3) [Vitamin D3] 1,000 unit PO DAILY 05/07/17 [History] Finasteride [Proscar] 5 mg PO DAILY 05/07/17 [History] Fish Oil/[place]-3 Fatty Acids [Fish Oil 1,000 MG] 1 each PO DAILY 05/07/17 [ History] Folic Acid 1 mg PO DAILY 05/07/17 [History] Hydrochlorothiazide 25 mg PO DAILY 05/07/17 [History] Multivitamin with Minerals [Multiple Vitamin] 1 tab PO DAILY 05/07/17 [History] Mv-Mn/FA/Vit K/Lycop/Lut/Zeaxa [Ocuvite Eye + Multi Tablet] 1 each PO DAILY [History] Niacin [Slo-Niacin] 1,000 mg PO BID 05/07/17 [History] Psyllium [Metamucil] 1 dose PO BID 05/07/17 [History] Triamcinolone Acetonide [Nasacort] 2 sprays NS DAILY 05/07/17 [History] Valsartan [Diovan] 320 mg PO DAILY 05/07/17 [History] amLODIPine [Norvasc] 10 mg PO BEDTIME 05/07/17 [History] Tamsulosin HCl [Flomax] 0.4 mg PO BEDTIME 05/08/17 [History] Ca/D3/Mag#11/Zinc/Product Test Engineer/Jaxon/Bor [Caltrate Plus Tablet] 1 each PO DAILY 08/03/18 [ History] Past Medical History HEENT History: Reports: Cataract, Hard of Hearing, Impaired Vision, Macular Degeneration Cardiovascular History: Reports: CAD, High Cholesterol, Hypertension, Stents Gastrointestinal History: Reports: Colon Polyp Genitourinary History: Reports: Prostate Disorder Endocrine/Metabolic History: Reports: Diabetes, Type II Oncologic (Cancer) History: Reports: Prostate - Infectious Disease History Infectious Disease History: Reports: Chicken Pox, Measles, Mumps, Rubella - Past Surgical History HEENT Surgical History: Reports: Cataract Surgery Cardiovascular Surgical History: Reports: Coronary Artery Stent GI Surgical History: Reports: Cholecystectomy, Colonoscopy, Hernia, Abdominal Male Surgical History: Reports: Prostate Biopsy, Other (See Below) Other Male Surgeries/Procedures: Kryo surgery Social & Family History - Family History Family Medical History: Noncontributory - Tobacco Use Smoking Status *Q: Never Smoker - Caffeine Use Caffeine Use: Reports: Coffee - Recreational Drug Use Recreational Drug Use: No Review of Systems - Review of Systems Review Of Systems: ROS reveals no pertinent complaints other than HPI. Constitutional: Reports: No Symptoms Eyes: Reports: No Symptoms Ears: Reports: No Symptoms Nose: Reports: No Symptoms Mouth/Throat: Reports: No Symptoms Respiratory: Reports: No Symptoms Cardiovascular: Reports: No Symptoms GI/Abdominal: Reports: No Symptoms Genitourinary: Reports: No Symptoms Musculoskeletal: Reports: Shoulder Pain (Right), Arm Pain (Right) Skin: Reports: No Symptoms Neurological: Reports: No Symptoms Psychiatric: Reports: No Symptoms ED EXAM, GENERAL - Physical Exam Exam: See Below Exam Limited By: No Limitations General Appearance: Alert, WD/WN, No Apparent Distress Eye Exam: Bilateral Eye: Normal Inspection Nose: Normal Inspection Throat/Mouth: Normal Inspection, Normal Oropharynx, No Airway Compromise Head: Atraumatic, Normocephalic Neck: Normal Inspection, Supple, Non-Tender, Full Range of Motion Respiratory/Chest: No Respiratory Distress, Lungs Clear, Normal Breath Sounds, No Accessory Muscle Use, Other (Minimal tenderness to right lateral chest with range of motion and palpation. No crepitus. No erythema, no edema, no ecchymosis.) Cardiovascular: No Murmur, Extra Beats, Irregularly Irregular GI/Abdominal: Normal Bowel Sounds, Soft, Non-Tender, No Organomegaly, No Distention, No Abnormal Bruit, No Mass Back Exam: Normal Inspection. No: CVA Tenderness (L), CVA Tenderness (R) Extremities: No Pedal Edema, Arm Pain (Shoulder and Right upper extremity tenderness to palpation and range of motion.) Neurological: Alert, Oriented, CN II-XII Intact, Normal Cognition, No Motor/ Sensory Deficits Psychiatric: Normal Affect, Normal Mood Skin Exam: Warm, Dry, Intact, Normal Color, No Rash Lymphatic: No Adenopathy (Of right axilla) EKG INTERPRETATION EKG Date: 08/03/18 Time: 17:00 Rate (Beats/Min): 63 ST-T: Elevated EKG Interpretation Comments: Inferior posterior infarct STEMI with underlying atrial fibrillation Course - Vital Signs Last Recorded V/S: Last Vital Signs Temp 97 F 08/03/18 16:05 Pulse 55 L 08/03/18 16:05 Resp 16 08/03/18 16:05 BP 142/68 H 08/03/18 16:05 Pulse Ox 96 08/03/18 16:05 - Orders/Labs/Meds Orders: Active Orders 24 hr Category Date Time Status Cardiac Monitoring [RC] . DIRECTED Care 08/03/18 16:27 Ordered EKG Documentation Completion [RC] ASDIRECTED Care 08/03/18 16:27 Ordered Peripheral IV Care [RC] . DIRECTED Care 08/03/18 16:27 Ordered Chest 1V Frontal [CR] Stat Exams 08/03/18 16:27 Ordered CBC WITH AUTO DIFF [HEME] Stat Lab 08/03/18 16:27 Ordered COMPREHENSIVE METABOLIC PN,CMP [CHEM] Stat Lab 08/03/18 16:27 Ordered TROPONIN I [CHEM] Stat Lab 08/03/18 16:27 Ordered Sodium Chloride 0.9% [Syrex Flush] Med 08/03/18 16:27 Ordered 5 ml FLUSH Q8HR PRN Peripheral IV Insertion Adult [OM.PC] Stat Oth 08/03/18 16:27 Ordered EKG 12 Lead [EK] Stat Ther 08/03/18 16:27 Ordered - Radiology Interpretation Free Text/Narrative:: Chest x-ray shows no acute cardiopulmonary process - Re-Assessments/Exams Free Text/Narrative Re-Assessment/Exam: 08/03/18 17:43 Patient afebrile, vital signs stable. Discussed case with Dr. Randhawa, cardiology from [facility]. Will accept patient for immediate transfer via ground ambulance. Patient given 180 mg Brilinta and 4000 of heparin. Departure - Departure Time of Disposition: 17:41 Disposition: DC/Tfer to Acute Hospital 02 Condition: Serious Clinical Impression: STEMI (ST elevation myocardial infarction) Qualifiers: Involved coronary artery: unspecified coronary artery Qualified Code(s): I21.3 - ST elevation (STEMI) myocardial infarction of unspecified site Chest pain Qualifiers: Chest pain type: chest pain due to myocardial ischemia Ischemic chest pain type : unspecified angina pectoris type Qualified Code(s): I25.9 - Chronic ischemic heart disease, unspecified - Discharge Information Referrals: Kayode Chand MD [Primary Care Provider] - - My Orders Last 24 Hours: My Active Orders 08/03/18 16:27 Cardiac Monitoring [RC] . DIRECTED EKG Documentation Completion [RC] ASDIRECTED Peripheral IV Care [RC] . DIRECTED Chest 1V Frontal [CR] Stat CBC WITH AUTO DIFF [HEME] Stat COMPREHENSIVE METABOLIC PN,CMP [CHEM] Stat TROPONIN I [CHEM] Stat Sodium Chloride 0.9% [Syrex Flush] 5 ml FLUSH Q8HR PRN Peripheral IV Insertion Adult [OM.PC] Stat EKG 12 Lead [EK] Stat - Assessment/Plan Last 24 Hours: My Active Orders 08/03/18 16:27 Cardiac Monitoring [RC] . DIRECTED EKG Documentation Completion [RC] ASDIRECTED Peripheral IV Care [RC] . DIRECTED Chest 1V Frontal [CR] Stat CBC WITH AUTO DIFF [HEME] Stat COMPREHENSIVE METABOLIC PN,CMP [CHEM] Stat TROPONIN I [CHEM] Stat Sodium Chloride 0.9% [Syrex Flush] 5 ml FLUSH Q8HR PRN Peripheral IV Insertion Adult [OM.PC] Stat EKG 12 Lead [EK] Stat Assessment:: Acute STEMI RI Plan: Transfer to [facility]
[2018-08-03] MEDS: Aspirin 81 MG Tab.Chew PO ONE (17:00)
[2018-08-03] MEDS: Aspirin 81 MG Tab.Chew ONE (17:00)
[2018-08-03 17:31] LABS: ANION GAP 22.2 mmol/L (5-15); CHLORIDE,CL 103 mmol/L (98-115); SODIUM,NA 147 mmol/L (136-145)
[2018-08-03] MEDS: Ticagrelor 90 MG Tab PO ONE ×2 (17:39→19:07)
[2018-08-03] MEDS: Heparin Sodium 5,000 Units/ML Vial IVPUSH ONE (17:39)
[2018-08-03] MEDS: Heparin Sodium 5,000 Units/ML Vial ONE (19:07)
--- OUTSIDE RECORDS SUMMARY | 2018-08-07 13:41 | XMSREPORT | Summary of Care ---
:1940 Author Organization and [facility] Address [address] [place] [address] Phone Care Team Providers Name Role Phone Tabatha Chand MD Primary Care Provider Nely Koenig Attributed Provider Reason for Visit Auth/Cert Status Reason Specialty Diagnoses / Procedures Referred By Contact Referred To Contact Encounter Details Date Type Department Care Team Description 08/03/2018 - Hospital Encounter [facility] Maikel Martinez MD [address] [place] [address] [phone] STEMI (ST elevation 08/05/2018 CENTER 6CD F Arsen Madrigal MD [address] [place] [address] [phone] infarction) [place] [address] Allergies Active Allergy Reactions Severity Noted Date Comments Penicillin Rash 09/27/2012 Terazosin Hcl Anaphylaxis (High) High 09/27/2012 Fainting, heart stopped as of this encounter Medications Prescription Sig. Disp. Refills Start End Status Date Date omega-3 fatty acids Take 1,000 mg by Active (FISH OIL) 1000 mg mouth 1 time per capsule day niacin (SLO-NIACIN) 500 Take 500 mg by Active MG CR tablet mouth 2 times a day vitamin D3, Take 1,000 Units Active cholecalciferol, 1000 by mouth 1 time unit capsule per day. Calcium Carbonate-Vit Take 1 tablet by Active D-Min (CALCIUM 600+D mouth 1 time per PLUS MINERALS PO) day psyllium (METAMUCIL) Take 1 capsule by Active 0.52 G capsule mouth 2 times a day. finasteride (PROSCAR) 5 Take 5 mg by Active MG tablet mouth 1 time per 3 day triamcinolone [place] 2 sprays 49.5 g 2 Active (NASACORT) 55 MCG/ACT into each nostril 5 nasal spray 1 time per day. Multiple Take 1 tablet by Active Vitamins-Minerals mouth 1 time per (OCUVITE ADULT 50+ PO) day acetaminophen (TYLENOL Take 650 mg by Active ARTHRITIS) 650 mg CR mouth 2 times a tablet day. tamsulosin (FLOMAX) 0.4 Take 1 capsule 90 capsule 0 Active mg capsuleIndications: (0.4 mg) by mouth 7 Enlarged prostate every night at bedtime ciclopirox (PENLAC) 8 % Apply to affected 1 Bottle 2 Active solutionIndications: area every night 7 Onychomycosis at bedtime blood glucose test Test blood sugar 100 each 3 Active strip daily and as 8 (FREESTYLE)Indications: needed if having Diabetes type 2, hyperglycemia or controlled hypoglycemia symptoms. freestyle lancets USE 1 time per 100 each 3 Active MISCIndications: day. 8 Diabetes type 2, controlled hydroCHLOROthiazide 25 Take 1 tablet (25 90 tablet 3 Active mg tabletIndications: mg) by mouth 1 8 Essential hypertension time per day folic acid 1 mg Take 1 tablet (1 90 tablet 3 Active tabletIndications: mg) by mouth 1 8 Atherosclerosis of time per day coronary artery of [place] heart without angina pectoris, unspecified vessel or lesion type cetirizine (ZYRTEC) 10 Take 1 tablet (10 14 tablet 0 Active mg tabletIndications: mg) by mouth 1 8 019 Seasonal allergic time per day rhinitis, unspecified trigger artificial tears 1.4 % 1 drop 2 times a Active SOLN day as needed for dry eyes nitroglycerin Dissolve 1 tablet 25 tablet 1 Active (NITROSTAT) 0.4 mg (0.4 mg) under 8 019 sublingual the tongue Every tabletIndications: ST 5 minutes as elevation myocardial needed for chest infarction involving pain May repeat right coronary artery every 5 minutes for a total of 3 doses. rosuvastatin (CRESTOR) Take 1 tablet (10 90 tablet 3 Active 10 mg mg) by mouth 1 8 tabletIndications: time per day Hyperlipidemia, unspecified hyperlipidemia type losartan 100 mg Take 0.5 tablets 30 tablet 5 Active tabletIndications: (50 mg) by mouth 8 019 Essential hypertension 1 time per day ticagrelor (BRILINTA) Take 1 tablet (90 60 tablet 11 Active 90 mg mg) by mouth 2 8 tabletIndications: ST times a day elevation myocardial infarction involving right coronary artery metoprolol succinate Take 0.5 tablets 30 tablet 3 Active (TOPROL XL) 25 mg SR (12.5 mg) by 8 019 tablet (24 mouth 1 time per hr)Indications: ST day elevation myocardial infarction involving right coronary artery aspirin 81 mg enteric Take 1 tablet (81 30 tablet 0 Active coated tablet mg) by mouth 1 8 time per day aspirin 81 mg enteric Take 81 mg by Suspended coated tablet mouth 2 times a 7 018 day rosuvastatin (CRESTOR) Take 1 tablet (5 90 tablet 3 Suspended 5 mg tabletIndications: mg) by mouth 1 8 018 Hyperlipidemia, time per day unspecified hyperlipidemia type amLODIPine (NORVASC) 10 Take 1 tablet (10 90 tablet 3 Suspended mg tabletIndications: mg) by mouth 1 8 018 Essential hypertension time per day hydrALAZINE Take 1 tablet (25 30 tablet 3 Suspended (APRESOLINE) 25 mg mg) by mouth 1 8 018 tabletIndications: time per day Essential hypertension losartan 100 mg Take 1 tablet 90 tablet 3 Suspended tabletIndications: (100 mg) by mouth 8 018 Essential hypertension 1 time per day as of this encounter Active Problems Problem Noted Date STEMI (ST elevation myocardial infarction) 08/03/2018 Back skin lesion 08/14/2016 Non-healing skin lesion 08/14/2016 Skin lesion of right ear 08/14/2016 Skin lesion of back 08/14/2016 Bilateral hearing loss 06/07/2016 Sebaceous cyst 06/07/2016 Overview: Left shoulder Dermatitis 06/07/2016 Overview: Right scapula Screening for colon cancer 04/07/2015 Nontoxic uninodular goiter 01/25/2012 Essential hypertension 04/19/2011 Coronary atherosclerosis 04/19/2011 Osteoarthritis 04/19/2011 Pure hypercholesterolemia 04/19/2011 Malignant neoplasm of prostate 04/19/2011 DM w/o complication type II 04/19/2011 as of this encounter Immunizations Name Dates Previously Given Next Due FLU VACCINE TRIVALENT 08/20/2013, 08/24/2011, 08/21/2010 MULTIDOSE(Fluvirin,Afluria) FLU VACCINE HIGH DOSE 65YR+ 08/22/2017, 09/14/2016, 09/14/2015 FLU VACCINE HIGH DOSE 65YR+(Fluzone) 09/14/2016 Influenza Vaccine,unspecified 09/14/2015, 08/26/2014, 08/20/2013, 08/15/2012 Pneumococcal Conj PCV13 09/14/2015 Pneumococcal Polysaccharide PPSV23 09/27/2004 TDAP 12/21/2015 Zoster Live(Zostavax) 12/16/2008 as of this encounter Social History Tobacco Use Types Packs/Day Years Used Date Never Smoker Smokeless Tobacco: Never Used Alcohol Use Drinks/Week oz/Week Comments No Sex Assigned at Date Recorded Not on file as of this encounter Last Filed Vital Signs Vital Sign Reading Time Taken Blood Pressure 113/64 08/05/2018 11:23 AM CDT Pulse 62 08/05/2018 11:23 AM CDT Temperature 37.2 C (98.9 F) 08/05/2018 11:23 AM CDT Respiratory Rate 16 08/05/2018 11:23 AM CDT Oxygen Saturation 95% 08/05/2018 11:23 AM CDT Inhaled Oxygen Concentration - - Weight 90.3 kg (199 lb 1.2 oz) 08/05/2018 6:00 AM CDT Height 170.2 cm (5' 7") 08/03/2018 7:43 PM CDT Body Mass Index 31.18 08/05/2018 6:00 AM CDT in this encounter Functional Status Functional Status Response Date of Assessment Is the person deaf or does he/she have serious difficulty No 08/04/2018 hearing? Is this person blind or does he/she have difficulty No 08/04/2018 seeing even when wearing glasses? Do you have difficulty with walking, balance, climbing No 08/04/2018 stairs, or had a fall in the last 3 months? Does the patient have difficulty dressing or bathing? No 08/04/2018 Because of a physical, mental, or emotional condition; No 08/04/2018 does this person have difficulty doing errands alone such as visiting a doctor's office or shopping? Cognitive Status Response Date of Assessment Because of a physical, mental, or emotional condition; No 08/04/2018 does this person have serious difficulty concentrating, remembering, or making decisions? as of this encounter Discharge Instructions Simin Rincon RN - 08/05/2018Diet: Low Salt/Low Cholesterol Activity: As tolerated. Activity Restrictions: Avoid jogging, contact sports, vacuuming, shoveling, lawn mowing or any other type of rough activity. You may resume walking as an exercise about 48 hour after the procedure. Do not push or pull anything heavy such as furniture. Do not lift objects weighing more than 10 lbs for 72 hours. Sexual activity may be resumed within 72 hours after procedure. If you had a recent heart attack ask your doctor if it is ok to resume sexual activity. Incision Care: Cleanse site daily with warm water and mild soap. Showering is ok 24 hours following the procedure.Do not scrub the site. Do not use a hot tub, tub bath or swim until the site is healed. Apply support to the site if you cough, sneeze or laugh. Do not put a dressing on the incision. Ok for your incision to get wet. Coumadin: If you have questions about your coumadin (warfarin), Lovenox (enoxaprin), arixtra. Call the anticoagulation clinic @ ext [phone] or locally [phone] Special Instructions: Weigh yourself daily. Take medications as prescribed. Check blood sugar per home routine. Use incentive spirometer every 2 hours while awake. It is ok to drive. Warning signs: Call doctor right away if you have any of these danger signals Temp of 101. If your pain increases. If you notice redness, swelling drainage, foul odor or other changes to incision. Watch your right leg for a change in color, increase in pain, numbness, tingling or if you can't move your fingers or toes. If your groin site is bleeding bright red blood or a hematoma is forming. Apply direct pressure to the site for at least 10 minutes. Contact health care provider. If your groin site is puffy or swelling that is getting bigger and pulsating with each Heart beat.Apply direct pressure to the site for at least 10 minutes. Contact health care provider. Call 911 for chest pain, shortness of breath or coughing up blood. Radial Cardiac Cath/Angioplasty Discharge Instructions ? Do not subject your hand/or arm to any forceful movements for 24 hours. This would include thingslike supporting your weight when rising from a chair or bed. ? For two days following discharge: o Do not operate a motor vehicle, tractor, lawnmower, motorcycle or all terrain vehicles. o Do not life anything heavier than one pound with affected arm. o Avoid a lot of wrist movement (extension/flexion). ? Avoid lifting heavy items with your affected arm for three days after your discharge. ? Do not take part in brisk exercise (i.e. Tennis) using your affected arm for five days after your discharge. ? If bleeding should occur while in the hospital, apply firm pressure to the site and call your nurse. ? If bleeding should occur after your discharge: o Sit down and apply firm pressure to site with your fingers for 10 minutes. o If the bleeding stops, continue to sit quietly, keeping your wrist straight for two hours. Call your doctor as soon as possible o If bleeding does not stop after 10 minutes or if there is a large amount of bleeding or spurting, call 911 [address] not [address] yourself to the hospital. ? You may shower on the day following your procedure. Do not take a tub bath for three days after your discharge. ? Expect mild tingling of hand and tenderness at the puncture site for up to three days. If this persists or other symptoms develop, please call your nurse or doctor. in this encounter Progress Notes Caroline Cortez RPh - 08/04/2018 10:54 AM [facility] Accept[facility] Pharmacy bedside delivery program was ACCEPTED by this patient. New prescriptions at discharge willbe filled at [facility] [address] [facility] and delivered to the patient's bedside by the pharmacist. This service is provided between the hours of [phone] Saturday through Saturday. Coronary Intervention Post Procedure Medication Education by Pharmacy Coronary intervention post procedure medication education was completed by pharmacy. The mechanism of action, efficacy, side effects, risks, and monitoring of aspirin, ticagrelor, sublingual nitroglycerin, losartan, rosuvastatin, metoprolol were reviewed with the patient. All questions were answered, and the patient and spouse verbalized understanding. Please call #[phone] with any questions. Respectfully, Khushi SextonD [phone] Monique Lofton, PHARM STUDENT - 08/04/2018 9:29 AM CDT08/04/2018 9:31 AM -- Patient was seen by the pharmacy med reconciliation team and HOME MEDICATIONS have been reconciled and updated to match the patient's home usage. Information from patient, verified with [facility]. Added to med list: Artificial tears Changed on med list: None Removed on med list: Cetirizine, Valsartan (switched to Losartan) Patient denies use of other inhalers, creams/ointments, eye/ear drops, patches or injectables, OTCs,vitamins and/or herbal products. Monique Lofton, PHARM STUDENT - patient mentioned taking a medication for blood pressure at bedtime and having recently reduced the dose to 1 tablet (from 3 tablets) due to bradycardia : was not able to identify this drug by name, [facility] thought that he might be referring to Valsartan - this medication should be DC'd due to replacement with Losartan (pt is aware).Kevin Hendrickson MD - 08/04/2018 7:53 AM CDTFormatting of this note may be different from the original. CRITICAL CARE MEDICINE PROGRESS NOTE Today's Date: 08/04/2018 Edd Webb is a 77yr old male who was admitted on 08/03/2018 7:34 PM PCP: Tabatha Chand MD TOVA: [id number] BRIEF HISTORY: This is a 77 year old male with history HTN, HLD, DM, CAD with stents to RCA and LAD who presented to [facility] with chest pain. He was found to have inferior wall STEMI on EKG and was transferred to [facility].On arrival, he was taken emergently for [facility] where he was found to have in-stent stenosis of RCA which was treated with 3*15 mm VANGIE. He was then admitted to the ICU for observation of hypotension and was started on dopamine. He remained awake and alert without requiring supplemental oxygen and reported symptomatic improvement after PCI. INTERVAL HISTORY: Overnight, patient reported mild pleuritic chest pain and underwent repeat EKG which was unremarkable. Also telemetry noted a single 10 beat run of wide- complex tachycardia. No other acute events overnight. Patient reports mild R shoulder pain but feels much better than on arrival. He has been weaned off dopamine and has required no supplemental oxygen. PHYSICAL EXAMINATION: Temp: 97.8 F (36.6 C) BP: 117/67 Pulse: 62 O2 Device: Room Air Resp: 19 Pain Ratin (out of 10) Weight: 90.4 kg (199 lb 4.7 oz) SpO2: 94 % Maximum Temperatures (last 24 hours) Temperature Maximum Max Temp 97.8 F (36.6 C) General: Pleasant, obese male. No acute distress HENT: Atraumatic, normocephalic Eyes: EOMI intact, sclerae anicteric Neck: No JVD. Trachea midline. Resp: Respiratory effort normal. No rales, rubs or rhonchi to auscultation. CV: Regular rhythm, normal rate. No murmurs or extra sounds auscultated. Abdomen: Soft, non-tender, non-distended. No guarding, no rigidity, no rebound. No hepatomegaly, no splenomegaly. No masses palpated. Ext: No lower extremity edema or varicosities, pulses positive Skin: No rashes, lesions, or subcutaneous nodules, no petechiae. LABS: Lab Results Component Value Date WBC 12.0 (H) 08/04/2018 RBC 3.84 (L) 08/04/2018 HEMOGLOBIN 11.7 (L) 08/04/2018 HEMATOCRIT 34.4 (L) 08/04/2018 MCV 89.6 08/04/2018 MCH 30.5 08/04/2018 MCHC 34.0 08/04/2018 PLTCOUNT 214 08/04/2018 NEUTROPCT 80.3 08/04/2018 LYMPHSPCT 9.8 08/04/2018 MONOSPCT 9.6 08/04/2018 EOSPCT 0.1 08/04/2018 BASOPHILPCT 0.2 08/04/2018 Lab Results Component Value Date GLUCOSE 145 (H) 08/04/2018 BUN 13 08/04/2018 CREATSERUM 0.80 08/04/2018 BCRATIO 16.3 08/04/2018 NA 138 08/04/2018 POTASSIUM 3.6 08/04/2018 CL 108 08/04/2018 CO2 22 08/04/2018 ANIONGAP 10 04/06/2016 CA 8.5 08/04/2018 PROTEINTOTAL 7.6 03/07/2018 ALBUMIN 3.5 08/04/2018 ALKPHOS 85 03/07/2018 AST 23 03/07/2018 ALT 22 03/07/2018 BILITOTAL 0.4 03/07/2018 Relevant diagnostic, laboratory and radiological studies have been reviewed in the Electronic Medical Record. PROBLEM LIST 1. STEMI s/p PCI with stent to RCA 2. Post-procedural hypotension, resolved 3. History CAD with stents 4. History hypertension 5. History hyperlipidemia 6. History diabetes mellitus without insulin therapy ASSESSMENT & PLAN Hemodynamics: Hemodynamically stable, no inotropic support Cardiovascular: Cardiology following patient. Medication management per their recommendations. TTE pending, monitoring troponin. Will restart hypertension medication at low dose and slowly titrate up. Pulmonary: Adequate ventilation and oxygenation on room air Infectious Diseases: Afebrile. Leukocytosis likely reactive, no signs of active infection Renal/Fluids/Electrolytes and Metabolic: Stable kidney functions, will monitor urine output, electrolytes and kidney functions. Continued on critical care electrolyte protocol. On LR 75 ml/hr, will discontinue as patient's diet is advanced Hematology: Stable hemoglobin, hematocrit and platelets. GI: No active issues Nutrition: Advancing to heart healthy diet as tolerated INVISIBLE BRACES ORTHODONTIST: No issues Endocrine: Hx DM. No active issues, blood glucose within normal range. Low- dose insulin correctionscale. Health Maintenance: Stress ulcer prophylaxis not indicated. Lovenox for DVT prophylaxis. Plan: Patient weaned off dopamine and remains hemodynamically stable and in no respiratory distress in ICU. Plan to transfer to telemetry unit and care to be provided by internal medicine. Cardiology agrees. Kevin Hendrickson DO Transitional Year Resident PGY1 Pager # [phone] Associated attestation - Luna Lou MD - 08/04/2018 7:12 PM CDTAttending Attestation: Patient was seen, evaluated and managed [id number] with the resident. I was physically present theentire time with the resident during the care of this patient. I discussed, provided input and I agree with history, physical exam, assessment/problems and management plan as documented. NonCritical care time 40 minutes for conditions stated in problems above. Luna Lou MD, [facility] Group Captain in this encounter Plan of Treatment Date Type Specialty Care Team Description 08/13/2018 Office Visit [facility] Nely Koenig, MUMTAZ [address] [place] [address] [phone] Name Priority Associated Diagnoses Date/Time EKG 12 LEAD STAT 08/03/2018 10:03 PM CDT EKG 12 LEAD (to be done 3 hours Routine 08/04/2018 1:00 AM CDT post coronary intervention) EKG 12 LEAD Routine 08/04/2018 7:06 AM CDT Name Priority Associated Diagnoses Order Schedule TROPONIN I Routine every 12 hours until discontinued starting 08/04/2018, 3 completed COMPLETE BLOOD COUNT WITH Routine Early AM draw for labs for DIFFERENTIAL 3 Days starting 08/05/2018 until 08/07/2018, 1 completed RENAL FUNCTION PANEL Routine Early AM draw for labs for 3 Days starting 08/05/2018 until 08/07/2018, 1 completed Health Maintenance Due Date Last Done Comments [employer] Directive 2003 document Zoster Vaccine (2 of 3 - Mixed 02/13/2009 12/16/2008 Series (ZVL first) - RZV,Shingrix) Ophthalmology Exam 04/22/2018 04/22/2017 (Previously completed), 03/29/2016 (Previously completed) Influenza Vaccine (#1) 2018 08/22/2017, 08/22/2017, 09/14/2016, Additional history exists Hemoglobin A1C Every 6 Months 02/01/2019 08/04/2018, 03/07/2018, 03/08/2017, Additional history exists Microalbumin 03/07/2019 03/07/2018, 03/08/2017, 06/07/2016, Additional history exists Diabetic Foot Exam 05/16/2019 05/16/2018, 04/22/2017 (Previously completed), 06/07/2016 Lipid Screening 08/04/2019 08/04/2018, 03/07/2018, 03/08/2017, Additional history exists Tetanus Vaccine 12/21/2025 12/21/2015 Colonoscopy 04/17/2026 04/17/2016, 04/07/2015, 04/07/2015 (Previously completed) Pneumococcal 65yr+ Low/Med Risk Completed 09/14/2015, 09/27/2004 as of this encounter Procedures Procedure Name Priority Date/Time Associated Comments Diagnosis GLUCOSE BY METER, Routine 08/05/2018 11:27 Results for this POCT AM CDT procedure are in the results section. TROPONIN I Timed Routine 08/05/2018 9:41 Results for this AM CDT procedure are in the results section. LAB ONLY-COMPLETE Routine 08/05/2018 4:55 Results for this BLOOD COUNT WITH AM CDT procedure are in DIFFERENTIAL the results section. RENAL FUNCTION PANEL Routine 08/05/2018 4:55 Results for this AM CDT procedure are in the results section. COMPLETE BLOOD COUNT Routine 08/05/2018 4:55 Results for this WITH DIFFERENTIAL AM CDT procedure are in the results section. TROPONIN I Timed Routine 08/04/2018 9:36 Results for this PM CDT procedure are in the results section. GLUCOSE BY METER, Routine 08/04/2018 9:07 Results for this POCT PM CDT procedure are in the results section. GLUCOSE BY METER, Routine 08/04/2018 5:51 Results for this POCT PM CDT procedure are in the results section. GLUCOSE BY METER, Routine 08/04/2018 11:31 Results for this POCT AM CDT procedure are in the results section. TROPONIN I Timed Routine 08/04/2018 10:05 Results for this AM CDT procedure are in the results section. GLUCOSE BY METER, Routine 08/04/2018 9:11 Results for this POCT AM CDT procedure are in the results section. LACTIC ACID Routine 08/04/2018 8:11 Results for this AM CDT procedure are in the results section. LAB ONLY-COMPLETE Routine 08/04/2018 6:44 Results for this BLOOD COUNT WITH AM CDT procedure are in DIFFERENTIAL the results section. LIPID PANEL Routine 08/04/2018 6:44 Results for this AM CDT procedure are in the results section. GLYCATED HEMOGLOBIN Routine 08/04/2018 6:44 Results for this AM CDT procedure are in the results section. MAGNESIUM Routine 08/04/2018 6:44 Results for this AM CDT procedure are in the results section. RENAL FUNCTION PANEL Routine 08/04/2018 6:44 Results for this AM CDT procedure are in the results section. COMPLETE BLOOD COUNT Routine 08/04/2018 6:44 Results for this WITH DIFFERENTIAL AM CDT procedure are in the results section. ACTIVATED CLOTTING Routine 08/04/2018 1:30 Results for this TIME POCT AM CDT procedure are in the results section. ACTIVATED CLOTTING Routine 08/04/2018 1:16 Results for this TIME POCT AM CDT procedure are in the results section. GLUCOSE BY METER, Routine 08/03/2018 11:12 Results for this POCT PM CDT procedure are in the results section. ACTIVATED CLOTTING Routine 08/03/2018 8:25 Results for this TIME POCT PM CDT procedure are in the results section. ACTIVATED CLOTTING Routine 08/03/2018 8:13 Results for this TIME POCT PM CDT procedure are in the results section. in this encounter Results GLUCOSE BY METER, POCT (08/05/2018 11:27 AM) Component Value Ref Range Glucose POC 137 (H) 70 - 100 mg/dL Specimen Performing Laboratory Blood [facility] POINT OF CARE TESTING [address] [place] [id number] TROPONIN I (08/05/2018 9:41 AM) Component Value Ref Range Troponin I 44.457 (H) 0.000 - 0.028 ng/mL Specimen Performing Laboratory Blood [place] [address] [address] LAB ONLY-COMPLETE BLOOD COUNT WITH DIFFERENTIAL (08/05/2018 4:55 AM) Component Value Ref Range WBC 9.6 4.0 - 11.0 K/uL RBC 3.75 (L) 4.40 - 5.80 M/uL Hemoglobin 11.4 (L) 13.5 - 17.5 g/dL Hematocrit 33.8 (L) 40.0 - 50.0 % MCV 90.1 80.0 - 98.0 fL MCH 30.4 25.5 - 34.0 pg MCHC 33.7 31.5 - 36.5 g/dL RDW-CV 12.6 11.5 - 15.5 % RDW-SD 41.4 35.5 - 50.0 fl Platelet Count 200 140 - 400 K/uL MPV 9.2 8.5 - 12.0 fL Seg Neut Absolute 7.0 1.8 - 8.0 K/uL Lymphocytes Absolute 1.4 0.8 - 4.1 K/uL Monocytes Absolute 1.2 (H) 0.0 - 1.0 K/uL Eosinophils Absolute 0.0 0.0 - 0.7 K/uL Basophil Absolute 0.0 0.0 - 0.2 K/uL Immature Granulocyte Absolute 0.04 0.00 - 0.06 K/uL Neutrophils Abs. (Segs and Bands) 7000 /uL Neutrophils Percent 72.7 % Lymphocytes Percent 14.4 % Monocytes Percent 12.4 % Immature Granulocyte Percent 0.4 % Eosinophils Percent 0.3 % Basophil Percent 0.2 % Specimen Performing Laboratory Blood [address] [address] RENAL FUNCTION PANEL (08/05/2018 4:55 AM) Component Value Ref Range Glucose 121 (H) 70 - 100 mg/dL BUN 12 6 - 22 mg/dL Creatinine 0.79 (L) 0.80 - 1.30 mg/dL BUN/Creatinine Ratio 15.2 10.0 - 25.0 Sodium 141 135 - 145 meq/L Potassium 3.6 3.5 - 5.3 meq/L Chloride 109 99 - 110 meq/L CO2 24 20 - 29 meq/L Anion Gap with K 12 6 - 20 meq/L Calcium 8.8 8.5 - 10.5 mg/dL Phosphorus 2.4 (L) 2.5 - 4.5 mg/dL Albumin 3.6 3.5 - 5.0 g/dL Corrected Calcium 9.1 8.5 - 10.5 mg/dL Age 77 Years eGFR Non- >90 >=60 mL/min/1.73m2 eGFR >90 >=60 mL/min/1.73m2 Specimen Performing Laboratory Blood [address] [address] COMPLETE BLOOD COUNT WITH DIFFERENTIAL (08/05/2018 4:55 AM) Specimen Performing Laboratory Blood Narrative The following orders were created for panel order COMPLETE BLOOD COUNT WITH DIFFERENTIAL. Procedure Abnormality Status --------- ------ LAB ONLY-COMPLETE BLOOD ...[[id number]]AbnormalFinal result Please view results for these tests on the individual orders. TROPONIN I (08/04/2018 9:36 PM) Component Value Ref Range Troponin I 70.385 (H) 0.000 - 0.028 ng/mL Specimen Performing Laboratory Blood [facility] [address] [facility] [address] [place] [address], [place] [address] GLUCOSE BY METER, POCT (08/04/2018 9:07 PM) Component Value Ref Range Glucose POC 130 (H) 70 - 100 mg/dL Specimen Performing Laboratory Blood [facility] POINT OF CARE TESTING [address] [place] [address] GLUCOSE BY METER, POCT (08/04/2018 5:51 PM) Component Value Ref Range Glucose POC 127 (H) 70 - 100 mg/dL Specimen Performing Laboratory Blood [facility] POINT OF CARE TESTING [address] [place] [address], [place] [address] GLUCOSE BY METER, POCT (08/04/2018 11:31 AM) Component Value Ref Range Glucose POC 155 (H) 70 - 100 mg/dL Specimen Performing Laboratory Blood [facility] POINT OF CARE TESTING [address] [place] [address], [place] [address] TROPONIN I (08/04/2018 10:05 AM) Component Value Ref Range Troponin I 96.260 (H) 0.000 - 0.028 ng/mL Specimen Performing Laboratory Blood [facility] [address] [facility] [address] [place] [address], [place] [address] GLUCOSE BY METER, POCT (08/04/2018 9:11 AM) Component Value Ref Range Glucose POC 104 (H) 70 - 100 mg/dL Specimen Performing Laboratory Blood [facility] POINT OF CARE TESTING [address] [place] [address], [place] [address] XRAY CHEST PORTABLE - (08/04/2018 8:20 AM) Specimen Performing Laboratory PS360 Narrative Patient Name: EDD WEBB Date of :1940 Procedure: XRAY CHEST PORTABLE Date of Service: 08/04/2018 EXAM: XRAY CHEST PORTABLE INDICATION:Chest pain FINDINGS: Comparison 10/11/2017 Infiltrative changes present in the more lateral left lower lung resolved, with no significant sequela. There are increased markings however in the more medial left lung base, which are new. Heart size is normal. Less than optimal depth of inspiration. Mediastinum and pulmonary vasculature are within normal limits. IMPRESSION: 1. Developing infiltrate/atelectasis in the medial left lung base. Finalized by: Cain Yeung MD on 08/04/2018 8:27 AM Patient/Procedure Information: [facility] MRN/TOVA: [id number] Order Number: [id number] Accession Number: [id number] Ordering Provider: KEVIN HENDRICKSON Authorizing Provider: LUNA LOU Procedure Note Interface, Jagdishantres - 08/04/2018 8:29 AM CDT Patient Name: EDD WEBB RAY Date of : 1940 Procedure: XRAY CHEST PORTABLE Date of Service: 08/04/2018 EXAM: XRAY CHEST PORTABLE INDICATION:Chest pain FINDINGS: Comparison 10/11/2017 Infiltrative changes present in the more lateral left lower lung resolved, with no significant sequela. There are increased markings however in the more medial left lung base, which are new. Heart size is normal. Less than optimal depth of inspiration. Mediastinum and pulmonary vasculature are within normal limits. IMPRESSION: 1. Developing infiltrate/atelectasis in the medial left lung base. Finalized by: Cain Yeung MD on 08/04/2018 8:27 AM Patient/Procedure Information: [facility] MRN/TOVA: [id number] Order Number: [id number] Accession Number: [id number] Ordering Provider: KEVIN HENDRICKSON Authorizing Provider: LUNA LOU LACTIC ACID (08/04/2018 8:11 AM) Component Value Ref Range Lactic Acid 1.9 0.5 - 2.2 mmol/L Specimen Performing Laboratory Blood [address] [place] [address] ECHO ADULT COMPLETE (08/04/2018 7:52 AM) Narrative Patient: EDD WEBB MR#:[id number] Exam Date: 08/04/2018 [facility] [address] S[address]ansthoracic Echocardiogram [place], [id number] : 130 /74 mmHg HR:60 bpm : 1940Exam Location:Bedside Height:67.00 "(170.2 cm) Age: 77 year(s)[facility].( 89.36 kg) Gender:MalePatient Status: Inpatient BSA: 2.01 m2 [employer] Tender:PADDY ESPINOZA RDCS (PE,FE) RVT Reading Physician:ARSEN MADRIGAL MD FACC Ordering Physician: MAIKEL MARTINEZ MD Procedure Indication(s):Acute inferior STEMI Examination:TTE Complete 2D(m-mode) , Complete Spectral Doppler, Color Doppler Conclusions Left Ventricle: Normal left ventricular size. Low normal left ventricular systolic function. The basal inferior, basal inferolateral, mid inferior and mid inferolateral wall segments are hypokinetic. Left Atrium: Normal left atrial size. Aortic Valve: Trivial aortic regurgitation. Mitral Valve: Trivial mitral regurgitation. Right Ventricle: Normal right ventricular systolic function. Right Atrium: Dilated right atrium. Tricuspid Valve: Ofxg-vx-stnydudg tricuspid regurgitation. Comparison Study Comparison Study: No previous echo was available for comparison Findings Left Ventricle: Normal left ventricular size. Normal left ventricular wall thickness. Low normal left ventricular systolic function. The ejection fraction is visually estimated to be 50 %. The basal inferior, basal inferolateral, mid inferior and mid inferolateral wall segments are hypokinetic. Left Atrium: Normal left atrial size. Aortic Valve: The aortic valve is tricuspid. Mild aortic cuspal thickening. Mild aortic cuspal calcification. Trivial aortic regurgitation. No aortic stenosis. Aorta: The sinus of valsalva is normal in size measuring 34.0 mm. The ascending aorta is normal in size measuring 35.0 mm. Mitral Valve: Mild mitral leaflet thickening. There is mild mitral annular calcification. Trivial mitral regurgitation. No mitral stenosis. IAS: No gross evidence of shunt flow seen; however the possibility of a PFO cannot be completely ruled out. Right Ventricle: Upper limits of normal right ventricular size. Normal right ventricular systolic function. Normal right ventricular wall thickness. Pulmonary artery systolic pressure is measured at 22 mmHg. Pulmonary Artery: No significant pulmonary artery hypertension. Right Atrium: Dilated right atrium. Tricuspid Valve: Normal tricuspid valve structure. Ascc-di-kswhujsl tricuspid regurgitation. Pulmonic Valve: Normal pulmonary valve structure. No significant pulmonary regurgitation. No pulmonary stenosis. IVC: Normal IVC size with normal respirophasic changes. Pericardium: No significant pericardial effusion. No pleural effusion. Measurements Left Ventricle Aortic Valve LabelValueNormal Value LabelValueNormal Value LVDd, 2D46.5 mmLVOT Vmax 105 cm/s LVDs, 2D33.5 mmAV Vmax 172 cm/s IVSd, 2D10.8 mmLVOTd 26 mm LVPWd, 2D 9.9 mm LVOT VTI21 cm FS, 2D27.96 %LVOT PGmax4 mmHg Cardiac Output6.72 L/min AV Syjpd070 cm/s Cardiac Index 3.34 AV VTI33.8 cm L/min/m-sq AV PGmax12 mmHg Left Atrium AV PGmean 8 mmHg LabelValueNormal Value STEWART (Vmax)3.2 cm-sq LADs Long.57 mmAR Vmax 348 cm/s LADs, MM48 mmAR Slope2.2 m/s-sq LA/AO Ratio, MM 1.33 AR PHT 457 ms Aorta AV Vmax, Uobclpb384 cm/s LabelValueNormal ValueMitral Valve Ao Mjpifdenzgg99.2 mmLabel ValueNormal Value Ao Asc35 mmMV E Vmax 53 cm/s Ao Sinus, MM36 mmMV A Vmax 121 cm/s Ao Sinus, 2D34 mmMV E/A0.44 Heart Rate MV E/E' lateral 7.4 LabelValueNormal Value MV E/E' rogfuu48 Heart Rate60 bpm MV Dec Time 258 ms MV E' septal0.1 cm/s MV E' lateral 0.1 cm/s Tricuspid Valve LabelValueNormal Value TR Vmax 219 cm/s TR Pmax 19 mmHg RA Pressure 3 mmHg RVSP22 mmHg Pulmonic Valve Label Value Normal Value PV Vmax 80 cm/s PV PGmax3 mmHg Wall Motion Scores -1 - Not Scored, 0 - Unknown, 1 - Normal or hyperkinesia,2 - Hypokinesia, 3 - Akinesia, 4 - Dyskinesia, 5 - Aneurysm Procedure Note Interface, Inc Results No Pull Forward - 08/05/2018 9:07 AM CDT Patient: EDD WEBB MR#: [id number] Exam Date: 08/04/2018 [facility] [address] Transthoracic Echocardiogram [place] [id number] BP: 130/74 mmHg HR: 60 bpm : 1940 Exam Location: Bedside Height: 67.00 "(170.2 cm) Age: 77 year(s) Patient [facility]: [facility] Weight: 197 lbs.(89.36 kg) Gender: Male Patient Status: Inpatient BSA: 2.01 m2 [employer] Tender: PADDY ESPINOZA RDCS (PE,FE) RVT Reading Physician: ARSEN MADRIGAL MD FACC Ordering Physician: MAIKEL MARTINEZ MD Procedure Indication(s): Acute inferior STEMI Examination: TTE Complete 2D(m-mode), Complete Spectral Doppler, Color Doppler Conclusions Left Ventricle: Normal left ventricular size. Low normal left ventricular systolic function. The basal inferior, basal inferolateral, mid inferior and mid inferolateral wall segments are hypokinetic. Left Atrium: Normal left atrial size. Aortic Valve: Trivial aortic regurgitation. Mitral Valve: Trivial mitral regurgitation. Right Ventricle: Normal right ventricular systolic function. Right Atrium: Dilated right atrium. Tricuspid Valve: Yxpq-jp-wyfazrpu tricuspid regurgitation. Comparison Study Comparison Study: No previous echo was available for comparison Findings Left Ventricle: Normal left ventricular size. Normal left ventricular wall thickness. Low normal left ventricular systolic function. The ejection fraction is visually estimated to be 50 %. The basal inferior, basal inferolateral, mid inferior and mid inferolateral wall segments are hypokinetic. Left Atrium: Normal left atrial size. Aortic Valve: The aortic valve is tricuspid. Mild aortic cuspal thickening. Mild aortic cuspal calcification. Trivial aortic regurgitation. No aortic stenosis. Aorta: The sinus of valsalva is normal in size measuring 34.0 mm. The ascending aorta is normal in size measuring 35.0 mm. Mitral Valve: Mild mitral leaflet thickening. There is mild mitral annular calcification. Trivial mitral regurgitation. No mitral stenosis. IAS: No gross evidence of shunt flow seen; however the possibility of a PFO cannot be completely ruled out. Right Ventricle: Upper limits of normal right ventricular size. Normal right ventricular systolic function. Normal right ventricular wall thickness. Pulmonary artery systolic pressure is measured at 22 mmHg. Pulmonary Artery: No significant pulmonary artery hypertension. Right Atrium: Dilated right atrium. Tricuspid Valve: Normal tricuspid valve structure. Xaot-fs-lzbptjcs tricuspid regurgitation. Pulmonic Valve: Normal pulmonary valve structure. No significant pulmonary regurgitation. No pulmonary stenosis. IVC: Normal IVC size with normal respirophasic changes. Pericardium: No significant pericardial effusion. No pleural effusion. Measurements Left Ventricle Aortic Valve Label Value Normal Value Label Value Normal Value LVDd, 2D 46.5 mm LVOT Vmax 105 cm/s LVDs, 2D 33.5 mm AV Vmax 172 cm/s IVSd, 2D 10.8 mm LVOTd 26 mm LVPWd, 2D 9.9 mm LVOT VTI 21 cm FS, 2D 27.96 % LVOT PGmax 4 mmHg Cardiac Output 6.72 L/min AV Vmean 135 cm/s Cardiac Index 3.34 AV VTI 33.8 cm L/min/m-sq AV PGmax 12 mmHg Left Atrium AV PGmean 8 mmHg Label Value Normal Value STEWART (Vmax) 3.2 cm-sq LADs Long. 57 mm AR Vmax 348 cm/s LADs, MM 48 mm AR Lincoln 2.2 m/s-sq LA/AO Ratio, MM 1.33 AR PHT 457 ms Aorta AV Vmax, Caliper 172 cm/s Label Value Normal Value Mitral Valve Ao Sinotubular 30.2 mm Label Value Normal Value Ao Asc 35 mm MV E Vmax 53 cm/s Ao Sinus, MM 36 mm MV A Vmax 121 cm/s Ao Sinus, 2D 34 mm MV E/A 0.44 Heart Rate MV E/E' lateral 7.4 Label Value Normal Value MV E/E' septal 10 Heart Rate 60 bpm MV Dec Time 258 ms MV E' septal 0.1 cm/s MV E' lateral 0.1 cm/s Tricuspid Valve Label Value Normal Value TR Vmax 219 cm/s TR Pmax 19 mmHg RA Pressure 3 mmHg RVSP 22 mmHg Pulmonic Valve Label Value Normal Value PV Vmax 80 cm/s PV PGmax 3 mmHg Wall Motion Scores -1 - Not Scored, 0 - Unknown, 1 - Normal or hyperkinesia, 2 - Hypokinesia, 3 - Akinesia, 4 - Dyskinesia, 5 - Aneurysm LAB ONLY-COMPLETE BLOOD COUNT WITH DIFFERENTIAL (08/04/2018 6:44 AM) Component Value Ref Range WBC 12.0 (H) 4.0 - 11.0 K/uL RBC 3.84 (L) 4.40 - 5.80 M/uL Hemoglobin 11.7 (L) 13.5 - 17.5 g/dL Hematocrit 34.4 (L) 40.0 - 50.0 % MCV 89.6 80.0 - 98.0 fL MCH 30.5 25.5 - 34.0 pg MCHC 34.0 31.5 - 36.5 g/dL RDW-CV 12.6 11.5 - 15.5 % RDW-SD 40.9 35.5 - 50.0 fl Platelet Count 214 140 - 400 K/uL MPV 9.5 8.5 - 12.0 fL Seg Neut Absolute 9.7 (H) 1.8 - 8.0 K/uL Lymphocytes Absolute 1.2 0.8 - 4.1 K/uL Monocytes Absolute 1.2 (H) 0.0 - 1.0 K/uL Eosinophils Absolute 0.0 0.0 - 0.7 K/uL Basophil Absolute 0.0 0.0 - 0.2 K/uL Immature Granulocyte Absolute 0.07 (H) 0.00 - 0.06 K/uL Neutrophils Abs. (Segs and Bands) 9700 /uL Neutrophils Percent 80.3 % Lymphocytes Percent 9.8 % Monocytes Percent 9.6 % Immature Granulocyte Percent 0.6 % Eosinophils Percent 0.1 % Basophil Percent 0.2 % Specimen Performing Laboratory Blood [address] [address] RENAL FUNCTION PANEL (08/04/2018 6:44 AM) Component Value Ref Range Glucose 145 (H) 70 - 100 mg/dL BUN 13 6 - 22 mg/dL Creatinine 0.80 0.80 - 1.30 mg/dL BUN/Creatinine Ratio 16.3 10.0 - 25.0 Sodium 138 135 - 145 meq/L Potassium 3.6 3.5 - 5.3 meq/L Chloride 108 99 - 110 meq/L CO2 22 20 - 29 meq/L Anion Gap with K 12 6 - 20 meq/L Calcium 8.5 8.5 - 10.5 mg/dL Phosphorus 2.8 2.5 - 4.5 mg/dL Albumin 3.5 3.5 - 5.0 g/dL Corrected Calcium 8.9 8.5 - 10.5 mg/dL Age 77 Years eGFR Non- >90 >=60 mL/min/1.73m2 eGFR >90 >=60 mL/min/1.73m2 Specimen Performing Laboratory Blood [address] [address] MAGNESIUM (08/04/2018 6:44 AM) Component Value Ref Range Magnesium 2.0 1.8 - 2.4 mg/dL Specimen Performing Laboratory Blood [address] [address] LIPID PANEL (08/04/2018 6:44 AM) Component Value Ref Range Cholesterol 115 100 - 200 mg/dL Triglyceride 205 (H) 50 - 150 mg/dL HDL 33 (L) 40 - 80 mg/dL LDL 41 0 - 129 mg/dL Specimen Performing Laboratory Blood [facility] [address] [place] [address] GLYCATED HEMOGLOBIN (HEMOGLOBIN A1C) (08/04/2018 6:44 AM) Component Value Ref Range Hgb A1C 6.1 (H) <5.7 % Estimated Average Glucose 128 mg/dL Specimen Performing Laboratory Blood [facility] [address] [place] [address] Narrative ADA Interpretive Guidelines When Using HbA1c for Diagnosis, Prediabetes 5.7 - 6.4% Diabetes >=6.5% When Using HbA1c for Monitoring of Known Diabetics, < 7% is a reasonable goal for many non adults. ADA Standards of Medical Care in Diabetes - 2018 COMPLETE BLOOD COUNT WITH DIFFERENTIAL (08/04/2018 6:44 AM) Specimen Performing Laboratory Blood Narrative The following orders were created for panel order COMPLETE BLOOD COUNT WITH DIFFERENTIAL. Procedure Abnormality Status --------- ------ LAB ONLY-COMPLETE BLOOD ...[[id number]]AbnormalFinal result Please view results for these tests on the individual orders. ACTIVATED CLOTTING TIME POCT (08/04/2018 1:30 AM) Component Value Ref Range Activated Clotting Time 136 100 - 150 Secs Specimen Performing Laboratory Blood [facility] POINT OF CARE TESTING [address] [place] [address] ACTIVATED CLOTTING TIME POCT (08/04/2018 1:16 AM) Component Value Ref Range Activated Clotting Time 100 - 150 Secs Comment: Repeat testing This is a corrected result.Result was previously reported as <50 Secs on 08/04/2018 at 0127 CDT. Specimen Performing Laboratory Blood [facility] POINT OF CARE TESTING [address] [place] [address] GLUCOSE BY METER, POCT (08/03/2018 11:12 PM) Component Value Ref Range Glucose POC 137 (H) 70 - 100 mg/dL Specimen Performing Laboratory Blood [facility] POINT OF CARE TESTING [address] [place] [address] ACTIVATED CLOTTING TIME POCT (08/03/2018 8:25 PM) Component Value Ref Range Activated Clotting Time 224 (H) 100 - 150 Secs Specimen Performing Laboratory Blood [facility] POINT OF CARE TESTING [address] [place] [address] ACTIVATED CLOTTING TIME POCT (08/03/2018 8:13 PM) Component Value Ref Range Activated Clotting Time 235 (H) 100 - 150 Secs Specimen Performing Laboratory Blood [facility] POINT OF CARE TESTING [address] [place] [address] Cardiac Cath Possible Angioplasty Stent Jockey'S Agent - Left (08/03/2018 7:36 PM) Narrative Patient: EDD WEBB [facility] Exam Date: 08/03/[address] S[address]am Time:07:36 PM -08:35 PM (59 [place] [address] min.) Department of Interventional Cardiology Diagnostic Left Heart Catheterization Report, Cardiac Interventional Report :1940Height: 66.93 "(170.0 cm) Patient Status: InpatientAge:77 year(s)Weight:197.97 lbs.( 89.80 kg) Patient Room: [facility] Gender: MaleBSA: 2.01 m2 Fluoro Time: 13.3 min. Cath Status: Diagnostic Order Dispatcher:MAIKEL MARTINEZ MD [employer] Driver:MAIKEL MARTINEZ MD Indication:Angina/AZ: myocardial infarction with ST elevation (STEMI). Diagnostic Conclusions: - There is significant single vessel coronary artery disease involving RCA which was 100% occluded proximally within the stent. Interventional Conclusions: - - A successful intervention of the RCA was performed with a VANGIE. There was slow flow distally to the stent. 0% residual stenosis. Interventional Summary Proximal right coronary artery: A successful Drug Eluting Stent was deployed using a RESOLUTE SANTANA RX3.0X15MM. Procedures Performed: Fluoro 0.1-60 Minutes. Medication/Infusion/Drip. Art Access - R radial artery. Art Access - R femoral artery*. Selective Rt Coronary Angiography. PTCA. Drug Eluting Stent Placement. Stephen Access - R femoral vein. Activated Clotting Time. Selective Lt Coronary Angiography. Left Heart Cath With Ventriculogram. Fabiana Femoral Artery Injected for Closure Place. Hemostasis w/ Angioseal. Sheath in w/ StatLock. Radial Artery Compression Device. Diagnostic Findings: Coronary Angiography The coronary circulation is right dominant. Left Main Left main artery: The segment is large. Angiography shows no disease. Left Anterior Descending Left anterior descending artery: The segment is large. Mid left anterior descending: There is a 20 % in-stent restenosis. First diagonal: The segment is moderately sized. Angiography shows no disease. Second diagonal: The segment is moderately sized. Angiography shows no disease. Third diagonal: The segment is moderately sized. Angiography shows no disease. Circumflex Circumflex artery: The segment is large. Angiography shows no disease. First obtuse marginal: The segment is large. Angiography shows no disease. Right Coronary Right coronary artery: The segment is large. Proximal right coronary artery: There is a 100 % in-stent restenosis. Right posterior descending artery: The segment is small. Angiography shows no disease. Right Posterolateral Segment: The segment is small. There is a 100 % stenosis. Left Heart Cath Left ventricular function was assessed. The posterobasal segment is hypokinetic. Ejection fraction was calculated by LV Gram with a value of 65%. Interventional Findings: Interventional Details Proximal right coronary artery: The initial stenosis was 100 %. This was an ACC /AHA High/C lesion for intervention. Guidewire crossing was successful. Balloon angioplasty was performed using a EMERGE OTW 2.0X12. The total number of attempt(s) was 2. The maximum inflation pressure was 12(milagro ). A successful Drug Eluting Stent was deployed using a RESOLUTE SANTANA RX3.0X15MM During Procedure, a RUNTHROUGH NS .014 180C 25-1011 or 3011 during setup, and a CATH GUIDE 6FR LAUNCHER JR4.0 during setup. The total number of attempt(s) was 1. The maximum inflation pressure was 20(milagro ). Following intervention there is a 0 % residual stenosis. There was TRUONG Flow 0 before the procedure and TRUONG Flow 3 following the procedure. No significant vessel dissection noted. Procedure Narrative: Access Right femoral artery: The puncture site was infiltrated with 8.0 ml of 1% Lidocaine. Vascular access was obtained and a 6FR ACT ULTIMUM 12CM [id number] was advanced into the vessel. Hemostasis/Sheath Status: Hemostasis was successful using a(n) ANGIO-SEAL VASCULAR CLOSURE DEVICE 6F . Right femoral vein: The puncture site was infiltrated with 5.0 ml of 1% Lidocaine. Vascular access was obtained and a 6FR ACT ULTIMUM 12CM [id number] was advanced into the vessel. Hemostasis/Sheath Status: The sheath was sutured in place. Right radial artery : The puncture site was infiltrated with 1.0 ml of 1% Lidocaine. Vascular access was obtained and a GLIDE SHEATH SLENDER 6FR was advanced into the vessel. Hemostasis/Sheath Status: Hemostasis was successful using a(n) RADIAL TR BAND. Coronary Angiography Left Coronary System: A catheter was positioned into the Vessel Ostium under fluoroscopic guidance. Contrast injections were performed using hand injection. Angiograms were obtained in multiple views. Right Coronary System: A catheter was positioned into the Vessel Ostium under fluoroscopic guidance. Contrast injections were performed using hand injection. Angiograms were obtained in multiple views. Left Heart Cath Ventriculography was performed using 30 cc of contrast at 15 cc/sec and 600 psi. Hemodynamic Impressions General Impressions: Hemodynamic assessment demonstrates No systemic hypertension, Left ventricular end diastolic pressure is moderately elevated. Hemodynamic Findings Pressures: Baseline: LVpressure 107mmHg, EDP 21.Baseline: AO pressure 100/46mmHg, mean 64. Hemodynamic Pressures-Phase: Baseline Location : LV Pressure s : 107 mmHg Pressure ed : 21 mmHg HR : 62 bpm Hemodynamic Pressures-Phase: Baseline Location : Ao Pressure s : 100 mmHg Pressure d : 46 mmHg Pressure m : 64 mmHg HR : 54 bpm Acute complication: No complications Contrast: Description DoseUnit HIS No. Reference No. Serial No. Lot No. Ordering Physician:MAIKEL MARTINEZ MD [employer] Accountant:HOWARD BLEVINS RN [employer] Investment Accountant:SUSANA HOFFMAN RN Scrub: ANUSHKA TORRES Monitor: VERONICA EDWARD Liner Assembler: JOY KO RT(R) Primary Order Dispatcher:MAIKEL MARTINEZ MD Diagnostic Physician Signature: (No Signature Object) Interventional Physician Signature: (No Signature Object) Ventriculography Measurements and Wall Motion Measurements: NameValue EF: 65 % Wall Motion: DE LA FUENTE Motion 5 Posterobasal: hypokinesia CYMRAES (-1) Not Scored (0) unknown (1) normal or hyperkinesia (2) hypokinesia (3) akinesia (4) dyskinesia Procedure Note Interface, Inc Results No Pull Forward - 08/04/2018 10:57 AM CDT Patient: EDD WEBB [facility] Exam Date: 08/03/[address] Exam Time: 07:36 PM-08:35 PM (59 [place] [address] min.) Department of Interventional Cardiology Diagnostic Left Heart Catheterization Report, Cardiac Interventional Report : 1940 Height: 66.93 "(170.0 cm) Patient Status: Inpatient Age: 77 year(s) Weight: 197.97 lbs.(89.80 kg) Patient Room: [facility] [place] Gender: Male BSA: 2.01 m2 Fluoro Time: 13.3 min. Cath Status: Diagnostic Order Dispatcher: MAIKEL MARTINEZ MD [employer] Driver: MAIKEL MARTINEZ MD Indication: Angina/AZ: myocardial infarction with ST elevation (STEMI). Diagnostic Conclusions: - There is significant single vessel coronary artery disease involving RCA which was 100% occluded proximally within the stent. Interventional Conclusions: - - A successful intervention of the RCA was performed with a VANGIE. There was slow flow distally to the stent. 0% residual stenosis. Interventional Summary Proximal right coronary artery: A successful Drug Eluting Stent was deployed using a RESOLUTE SANTANA RX3.0X15MM. Procedures Performed: Fluoro 0.1-60 Minutes. Medication/Infusion/Drip. Art Access - R radial artery. Art Access - R femoral artery*. Selective Rt Coronary Angiography. PTCA. Drug Eluting Stent Placement. Stephen Access - R femoral vein. Activated Clotting Time. Selective Lt Coronary Angiography. Left Heart Cath With Ventriculogram. Fabiana Femoral Artery Injected for Closure Place. Hemostasis w/ Angioseal. Sheath in w/ StatLock. Radial Artery Compression Device. Diagnostic Findings: Coronary Angiography The coronary circulation is right dominant. Left Main Left main artery: The segment is large. Angiography shows no disease. Left Anterior Descending Left anterior descending artery: The segment is large. Mid left anterior descending: There is a 20 % in-stent restenosis. First diagonal: The segment is moderately sized. Angiography shows no disease. Second diagonal: The segment is moderately sized. Angiography shows no disease. Third diagonal: The segment is moderately sized. Angiography shows no disease. Circumflex Circumflex artery: The segment is large. Angiography shows no disease. First obtuse marginal: The segment is large. Angiography shows no disease. Right Coronary Right coronary artery: The segment is large. Proximal right coronary artery: There is a 100 % in-stent restenosis. Right posterior descending artery: The segment is small. Angiography shows no disease. Right Posterolateral Segment: The segment is small. There is a 100 % stenosis. Left Heart Cath Left ventricular function was assessed. The posterobasal segment is hypokinetic. Ejection fraction was calculated by LV Gram with a value of 65%. Interventional Findings: Interventional Details Proximal right coronary artery: The initial stenosis was 100 %. This was an ACC /AHA High/C lesion for intervention. Guidewire crossing was successful. Balloon angioplasty was performed using a EMERGE OTW 2.0X12. The total number of attempt(s) was 2. The maximum inflation pressure was 12(milagro ). A successful Drug Eluting Stent was deployed using a RESOLUTE SANTANA RX3.0X15MM During Procedure, a RUNTHROUGH NS .014 180C 25-1011 or 3011 during setup, and a CATH GUIDE 6FR LAUNCHER JR4.0 during setup. The total number of attempt(s) was 1. The maximum inflation pressure was 20(milagro ). Following intervention there is a 0 % residual stenosis. There was TRUONG Flow 0 before the procedure and TRUONG Flow 3 following the procedure. No significant vessel dissection noted. Procedure Narrative: Access Right femoral artery: The puncture site was infiltrated with 8.0 ml of 1% Lidocaine. Vascular access was obtained and a 6FR ACT ULTIMUM 12CM [id number] was advanced into the vessel. Hemostasis/Sheath Status: Hemostasis was successful using a(n) ANGIO-SEAL VASCULAR CLOSURE DEVICE 6F . Right femoral vein: The puncture site was infiltrated with 5.0 ml of 1% Lidocaine. Vascular access was obtained and a 6FR ACT ULTIMUM 12CM [id number] was advanced into the vessel. Hemostasis/Sheath Status: The sheath was sutured in place. Right radial artery: The puncture site was infiltrated with 1.0 ml of 1% Lidocaine. Vascular access was obtained and a GLIDE SHEATH SLENDER 6FR was advanced into the vessel. Hemostasis/Sheath Status: Hemostasis was successful using a(n) RADIAL TR BAND. Coronary Angiography Left Coronary System: A catheter was positioned into the Vessel Ostium under fluoroscopic guidance. Contrast injections were performed using hand injection. Angiograms were obtained in multiple views. Right Coronary System: A catheter was positioned into the Vessel Ostium under fluoroscopic guidance. Contrast injections were performed using hand injection. Angiograms were obtained in multiple views. Left Heart Cath Ventriculography was performed using 30 cc of contrast at 15 cc/sec and 600 psi. Hemodynamic Impressions General Impressions: Hemodynamic assessment demonstrates No systemic hypertension, Left ventricular end diastolic pressure is moderately elevated. Hemodynamic Findings Pressures: Baseline: LV pressure 107mmHg, EDP 21. Baseline: AO pressure 100/ 46mmHg, mean 64. Hemodynamic Pressures-Phase: Baseline Location : LV Pressure s : 107 mmHg Pressure ed : 21 mmHg HR : 62 bpm Hemodynamic Pressures-Phase: Baseline Location : Ao Pressure s : 100 mmHg Pressure d : 46 mmHg Pressure m : 64 mmHg HR : 54 bpm Acute complication: No complications Contrast: Description Dose Unit HIS No. Reference No. Serial No. Lot No. Ordering Physician: MAIKEL MARTINEZ MD CCL Investment Accountant: HOWARD BLEVINS RN CCL Investment Accountant: SUSANA HOFFMAN RN Scrub: ANUSHKA TORRES Monitor: VERONICA EDWARD Liner Assembler: JOY KO RT(R) Primary Order Dispatcher: MAIKEL MARTINEZ MD Diagnostic Physician Signature: (No Signature Object) Interventional Physician Signature: (No Signature Object) Ventriculography Measurements and Wall Motion Measurements: Name Value EF: 65 % Wall Motion: DE [place] FUENTE Motion 5 Posterobasal: hypokinesia CYMRAES (-1) Not Scored (0) unknown (1) normal or hyperkinesia (2) hypokinesia (3) akinesia (4) dyskinesia in this encounter Visit Diagnoses Diagnosis STEMI (ST elevation myocardial infarction) - Primary Acute myocardial infarction, unspecified site, episode of care unspecified 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 Acute myocardial infarction of inferoposterior wall, initial episode of care Hyperlipidemia, unspecified hyperlipidemia type Essential hypertension Unspecified essential hypertension in this encounter Administered Medications Medication Order MAR Action Action Date Dose Rate Site acetaminophen (TYLENOL) tablet 650 mg Given 08/04/2018 15:55 CDT 650 mg 650 mg, Oral, Every four hours prn, Starting 08/03/18 at 2121, Until Discontinued, mild pain, Pain Scale 1 - 3 acetaminophen (TYLENOL) tablet 650 mg Given 08/04/2018 09:51 CDT 650 mg 650 mg, Oral, Two times a day, First dose on Sat08/04/18 at 1000, Until Discontinued, Total dose of acetaminophen from all acetaminophen containing products should not exceed 4 grams (4000 mg) per day. Given 08/04/2018 21:03 CDT 650 mg Given 08/05/2018 10:00 CDT 650 mg amLODIPine (NORVASC) tablet 5 mg Given 08/05/2018 10:01 CDT 5 mg 5 mg, Oral, Daily, First dose on Sat08/05/18 at 0900, Until Discontinued, Hold for SBP less than 100 aspirin chewable tablet 81 mg Given 08/04/2018 07:49 CDT 81 mg 81 mg, Oral, Daily, First dose on Sat08/04/18 at 0900, Until Discontinued Given 08/05/2018 10:01 CDT 81 mg enoxaparin (LOVENOX) subcutaneous injection Given 08/04/2018 20:01 CDT 40 mg solution 40 mg 40 mg, Subcutaneous, Bedtime, First dose on Sat08/04/18 at 2100, Until Discontinued, To avoid the loss of drug when using the 30 mg and 40 mg prefilled syringes, do not expel the air bubble from the syringe before the injection. Administration should be alternated between the left and right anterolateral and left and right posterolateral abdominal wall. The whole length of the needle should be introduced into a skin fold held between the thumb and forefinger; the skin fold should be held throughout the injection. To minimize bruising, do not rub the injection site after completion of the injection. fentaNYL 100 mcg/2 mL preservative free Given 08/04/2018 01:44 CDT 50 mcg injection solution 50 mcg 50 mcg, IV, Every five minutes prn, Starting 08/03/18 at 2133, Until Discontinued, other (Specify), pain score 7 or greater, pain unrelieved by medication for pain score 4-6 (Unless 100 mcg was given for CPOT 8 or analog score 10), 2 mL, Pain stratification is defined as follows for either analog scale (0-10) or critical care pain observation tool (CPOT, 0-8). a. No pain (0) b. Mild pain level (1-3) c. Moderate pain level (4-6) d. Severe pain level (greater than or equal to 7) finasteride (PROSCAR) tablet 5 mg Given 08/04/2018 10:33 CDT 5 mg 5 mg, Oral, DAILY, First dose on Sat08/04/18 at 1100, Until Discontinued, This medication is a low risk cytotoxic drug. Wear 2 pairs of chemo gloves for administration. If unable to administer dose intact - contact pharmacy for other administration options. Dispose of empty packages in the yellow cytotoxic waste. Dispose of unused or partial packages in the black waste containers. Given 08/05/2018 10:01 CDT 5 mg hydroCHLOROthiazide tablet 25 mg Given 08/04/2018 10:33 CDT 25 mg 25 mg, Oral, DAILY, First dose on Sat08/04/18 at 1100, Until Discontinued Given 08/05/2018 10:00 CDT 25 mg ondansetron (ZOFRAN) injection solution 4 mg Given 08/03/2018 21:53 CDT 4 mg 4 mg, IV, Every four hours prn, Starting 08/03/18 at 2133, Until Discontinued, nausea, vomiting, 2 mL, Use FIRST. If ineffective after 15 minutes use haloperidol if ordered for nausea/vomiting Given 08/04/2018 18:34 CDT 4 mg rosuvastatin (CRESTOR) tablet 5 mg Given 08/04/2018 10:33 CDT 5 mg 5 mg, Oral, DAILY, First dose on Sat08/04/18 at 1100, Until Discontinued Given 08/05/2018 10:01 CDT 5 mg tamsulosin (FLOMAX) capsule 0.4 mg Given 08/04/2018 20:01 CDT 0.4 mg 0.4 mg, Oral, Bedtime, First dose on Sat08/04/18 at 2100, Until Discontinued, Swallow cap whole. Do not crush, chew or open. ticagrelor (BRILINTA) tablet 90 mg Given 08/04/2018 07:49 CDT 90 mg 90 mg, Oral, Two times a day, 730 doses, First dose on 08/03/18 at 2200, Last dose on Sat08/03/19 at 0900, If medication is crushed, must be mixed with water for administration. Given 08/04/2018 20:01 CDT 90 mg Given 08/05/2018 10:01 CDT 90 mg Medication Order MAR Action Action Date Dose Rate Site atorvaSTATin (LIPITOR) tablet 40 mg Given 08/03/2018 22:26 CDT 40 mg 40 mg, Oral, Bedtime, First dose on 08/03/18 at 2145, Until Discontinued atropine sulfate (1 mg/10mL) injection solution Given 08/03/2018 19:57 CDT 1 mg 0-1 mg 0-1 mg, IV, Administer in Cardiac Jockey'S Agent, 1 dose, [place] 08/03/18 at 2005, 10 mL, Under the direction of the provider in CCL. Do not give on the floor. DOPamine (1600 mcg/mL) in D5W IV New Bag 08/03/2018 20:13 CDT 5 mcg/kg/min solution (premix)~ 0-20 mcg/kg/min, IV, Administer in Cardiac Jockey'S Agent, 1 dose, [place] 08/03/18 at 2010, Under the direction of the provider in CCL. Do not give on the floor. Begin administration in the CCL. If to continue on the floor post-procedure, a new order must be entered. Rate Change 08/03/2018 20:40 CDT 2.5 mcg/kg/min fentaNYL 100 mcg/2 mL preservative free Given 08/03/2018 19:34 CDT 50 mcg injection solution 12.5-300 mcg 12.5-300 mcg, IV, Administer in Cardiac Jockey'S Agent, 1 dose, [place] 08/03/18 at 1840, 6 mL, Under the direction of the provider in CCL. Do not give on the floor. For cardiac catheterization sedation under direction provider privileged to perform sedation. heparin (porcine) injection solution Given 08/03/2018 20:05 CDT 3,000 Units 0-12,000 Units 0-12,000 Units, IV, Administer in Cardiac Jockey'S Agent, 1 dose, [place] 08/03/18 at 2005, 12 mL, Under the direction of the provider in CCL. Do not give on the floor. heparin (porcine) injection solution Given 08/03/2018 20:19 CDT 2,000 Units 0-12,000 Units 0-12,000 Units, IV, Administer in Cardiac Jockey'S Agent, 1 dose, [place] 08/03/18 at 2020, 30 mL, Under the direction of the provider in CCL. Do not give on the floor. Given 08/03/2018 20:38 CDT 2,000 Units iohexol (OMNIPAQUE) 350 mg/mL solution 130 mL Given 08/03/2018 20:36 CDT 130 mL 130 mL, Intra-arterial, One time, 1 dose, [place] 08/03/18 at 2040, 150 mL lidocaine PF (XYLOCAINE-MPF) 1 % preservative free Given 08/03/2018 19:37 CDT 1 mL injection solution 0-40 mL 0-40 mL, Subcutaneous, Administer in Cardiac Jockey'S Agent, 1 dose, [place] 08/03/18 at 1840, 60 mL, Given by provider in CCL. Do not give on the floor. Given 08/03/2018 19:42 CDT 8 mL midazolam (VERSED) injection solution 0.5-20 mg Given 08/03/2018 19:34 CDT 1 mg 0.5-20 mg, IV, Administer in Cardiac Jockey'S Agent, 1 dose, [place] 08/03/18 at 1840, 20 mL, For cardiac catheterization sedation under direction provider privileged to perform sedation. Do not give on the floor. nitroprusside (NIPRIDE) 200 mcg/mL IV Given 08/03/2018 20:06 CDT 5 mcg/kg/ min solution (standard concentration) 0-8 mcg/kg/min, IV, Administer in Cardiac Jockey'S Agent, 1 dose, [place] 08/03/18 at 2010, 250 mL, Under the direction of the provider in CCL. Do not give on the floor. Begin administration in the CCL. If to continue on the floor post-procedure, a new order must be entered. potassium chloride 20 mEq, lidocaine 10 mg in Given 08/04/2018 08:35 CDT 20 mEq sodium chloride 0.9% 250 mL 20 mEq, IV, Now, 1 dose, [facility] 08/04/18 at 0725, 250 mL, Peripheral Line sodium chloride 0.9% IV solution New Bag 08/03/2018 23:07 CDT 150 mL/hr IV, at 150 mL/hr, Continuous, Starting [place] 08/03/18 at 2350, Until 08/04/18 at 0949, 1,000 mL New Bag 08/04/2018 05:05 CDT 150 mL/hr verapamil-hEParin in normal saline (radial cocktail) Given 08/03/2018 19:39 CDT Intra-arterial, Administer in Cardiac Jockey'S Agent, 1 dose, [place] 08/03/18 at 1840, 10 mL, Under the direction of the provider in CCL. Do not give on the floor. in this encounter
== END 2018-08-03 17:47 ==
LOC: KA.ED 15:57
DX: I21.3 ST elevation (STEMI) myocardial infarction of unspecified site (principal); I10 Essential (primary) hypertension; E78.00 Pure hypercholesterolemia, unspecified; E11.9 Type 2 diabetes mellitus without complications; Z79.82 Long term (current) use of aspirin; Z79.899 Other long term (current) drug therapy; Z88.0 Allergy status to penicillin; Z88.8 Allergy status to other drugs, medicaments and biological substances
CPT/HCPCS: 71045; 80053; 84484; 85025; 96372; 99285; A9270-GY; J1644

== ENCOUNTER 2022-08-22 19:15 | Observation (INO) | payer MEDICARE ==
[2022-08-22] MEDS ORDERED: HYDROmorphone 1 MG/ML Syringe IV ONE (20:25)
[2022-08-22] MEDS ORDERED: Finasteride 5 MG Tab PO ONE (22:20)
[2022-08-22] MEDS ORDERED: Tamsulosin 0.4 MG Cap.ER PO ONE (22:20)
[2022-08-22] MEDS ORDERED: HYDROmorphone 1 MG/ML Syringe IVPUSH ONE (23:00)
[2022-08-22] MEDS ORDERED: Ondansetron 4 MG/2 ML SDV IVPUSH ONE (23:15)
[2022-08-23] MEDS ORDERED: Metoprolol Succinate 25 MG Tab.ER PO ONE (10:15)
[2022-09-09 11:51] LABS: CHLORIDE,CL 101 mmol/L (98-115); SODIUM,NA 137 mmol/L (136-145)
[2022-09-09 11:52] LABS: ESTIMATED GFR 87 mL/min (>=60)
== END 2022-08-23 14:25 ==
LOC: KA.ED 19:15 → KA.ZCENSUS 20:30 → KA.ED 20:35
PROVIDERS: ADMIT Physician Assistant Surgical; ATTEND Family Medicine
DX: S72.141A Displaced intertrochanteric fracture of right femur, initial encounter for closed fracture (principal); E11.9 Type 2 diabetes mellitus without complications; I25.2 Old myocardial infarction; I10 Essential (primary) hypertension; I25.10 Atherosclerotic heart disease of native coronary artery without angina pectoris; E78.00 Pure hypercholesterolemia, unspecified; E66.9 Obesity, unspecified; C61 Malignant neoplasm of prostate; E04.1 Nontoxic single thyroid nodule; M19.90 Unspecified osteoarthritis, unspecified site; C44.92 Squamous cell carcinoma of skin, unspecified; W08.XXXA Fall from other furniture, initial encounter; Z98.890 Other specified postprocedural states; Z95.5 Presence of coronary angioplasty implant and graft; Z90.49 Acquired absence of other specified parts of digestive tract
CPT/HCPCS: 36415; 80048; 85025; 96374; 96375; 99284-25; A9270-GY; J1170; J2405

== ENCOUNTER 2022-08-27 14:00 | Inpatient (IN) | payer BC, MEDICARE ==
[~2022-08-27 14:00] MED LIST: Acetaminophen/oxyCODONE 325-5 MG Tab PO PRN; guaiFENesin 100 MG/5 ML Soln 5 ML UD Cup PO PRN
[2022-08-28] MEDS ORDERED: Carboxymethylcellulose Sodium 0.5% Ophth Soln 15 ML Bottle EYEBOTH PRN (15:09)
[2022-08-28] MEDS ORDERED: Nitroglycerin 0.4 MG Tab.SL SL PRN (15:09)
[2022-08-28] MEDS ORDERED: Acetaminophen/oxyCODONE 325-5 MG Tab PO PRN (18:25)
[2022-08-28] MEDS: Acetaminophen 650 MG Tab.ER PO SCH (20:37)
[2022-08-28] MEDS: metFORMIN 500 MG Tab PO SCH (20:37)
[2022-08-28] MEDS: Tamsulosin 0.4 MG Cap.ER PO SCH (20:37)
[2022-08-28] MEDS: METAMUCIL PO SCH (20:38)
[2022-08-28] MEDS: [UNRECOGNIZED DRUG - OTHER] PO SCH (20:38)
[2022-08-29] MEDS: [UNRECOGNIZED DRUG - OTHER] PO SCH ×2 (09:23→20:10)
[2022-08-29] MEDS: METAMUCIL PO SCH ×2 (09:23→20:10)
[2022-08-29] MEDS: Calcium Citrate/Vitamin D3 315 MG-250 Unit Tab PO SCH (09:24)
[2022-08-29] MEDS: Folic Acid 1 MG Tab PO SCH (09:24)
[2022-08-29] MEDS: Hydrochlorothiazide 25 MG Tab PO SCH (09:24)
[2022-08-29] MEDS: Finasteride 5 MG Tab PO SCH (09:24)
[2022-08-29] MEDS: Rosuvastatin 10 MG Tab PO SCH (09:24)
[2022-08-29] MEDS: NASACORT NASBOTH SCH (09:24)
[2022-08-29] MEDS: Cholecalciferol (Vitamin D3) 25 MCG Tab PO SCH (09:24)
[2022-08-29] MEDS: Multivitamins with Minerals/Iron/Folic Acid/Lycopene Tab PO SCH (09:24)
[2022-08-29] MEDS: Losartan 50 MG Tab PO SCH (09:25)
[2022-08-29] MEDS: Metoprolol Succinate 25 MG Tab.ER PO SCH (09:27)
[2022-08-29] MEDS: Acetaminophen 650 MG Tab.ER PO SCH ×2 (09:27→20:09)
[2022-08-29] MEDS: Enoxaparin 40 MG/0.4 ML Syringe SUBCUT SCH (09:28)
[2022-08-29] MEDS: Acetaminophen/oxyCODONE 325-5 MG Tab PO PRN (17:02)
[2022-08-29] MEDS: metFORMIN 500 MG Tab PO SCH (20:10)
[2022-08-29] MEDS: Tamsulosin 0.4 MG Cap.ER PO SCH (20:10)
[2022-08-30 07:58] LABS: ANION GAP 9.4 mmol/L (5-15)
[2022-08-30] MEDS: Enoxaparin 40 MG/0.4 ML Syringe SUBCUT SCH (08:15)
[2022-08-30] MEDS: Cholecalciferol (Vitamin D3) 25 MCG Tab PO SCH (08:15)
[2022-08-30] MEDS: Folic Acid 1 MG Tab PO SCH (08:16)
[2022-08-30] MEDS: Multivitamins with Minerals/Iron/Folic Acid/Lycopene Tab PO SCH (08:16)
[2022-08-30] MEDS: Rosuvastatin 10 MG Tab PO SCH (08:16)
[2022-08-30] MEDS: Metoprolol Succinate 25 MG Tab.ER PO SCH (08:17)
[2022-08-30] MEDS: Acetaminophen 650 MG Tab.ER PO SCH ×2 (08:17→21:31)
[2022-08-30] MEDS: Calcium Citrate/Vitamin D3 315 MG-250 Unit Tab PO SCH (08:17)
[2022-08-30] MEDS: Acetaminophen/oxyCODONE 325-5 MG Tab PO PRN ×2 (08:18→21:30)
[2022-08-30] MEDS: Finasteride 5 MG Tab PO SCH (08:18)
[2022-08-30] MEDS: Hydrochlorothiazide 25 MG Tab PO SCH (08:18)
[2022-08-30] MEDS: Losartan 50 MG Tab PO SCH (08:18)
[2022-08-30] MEDS: METAMUCIL PO SCH ×2 (08:19→21:32)
[2022-08-30] MEDS: [UNRECOGNIZED DRUG - OTHER] PO SCH ×2 (08:19→21:32)
[2022-08-30] MEDS: NASACORT NASBOTH SCH (08:19)
[2022-08-30] MEDS: guaiFENesin 100 MG/5 ML Soln 5 ML UD Cup PO PRN (15:08)
[2022-08-30] MEDS: Acetaminophen 650 MG Tab.ER PO PRN (15:12)
[2022-08-30] MEDS: Tamsulosin 0.4 MG Cap.ER PO SCH (21:31)
[2022-08-30] MEDS: metFORMIN 500 MG Tab PO SCH (21:32)
[2022-08-31] MEDS: Acetaminophen/oxyCODONE 325-5 MG Tab PO PRN ×2 (07:08→20:10)
[2022-08-31] MEDS: guaiFENesin 100 MG/5 ML Soln 5 ML UD Cup PO PRN ×2 (07:09→20:11)
[2022-08-31] MEDS: Cholecalciferol (Vitamin D3) 25 MCG Tab PO SCH (09:30)
[2022-08-31] MEDS: Enoxaparin 40 MG/0.4 ML Syringe SUBCUT SCH (09:30)
[2022-08-31] MEDS: Rosuvastatin 10 MG Tab PO SCH (09:31)
[2022-08-31] MEDS: Hydrochlorothiazide 25 MG Tab PO SCH (09:31)
[2022-08-31] MEDS: Finasteride 5 MG Tab PO SCH (09:31)
[2022-08-31] MEDS: Acetaminophen 650 MG Tab.ER PO SCH ×2 (09:31→20:10)
[2022-08-31] MEDS: Multivitamins with Minerals/Iron/Folic Acid/Lycopene Tab PO SCH (09:32)
[2022-08-31] MEDS: Metoprolol Succinate 25 MG Tab.ER PO SCH (09:32)
[2022-08-31] MEDS: Losartan 50 MG Tab PO SCH (09:32)
[2022-08-31] MEDS: Calcium Citrate/Vitamin D3 315 MG-250 Unit Tab PO SCH (09:33)
[2022-08-31] MEDS: Folic Acid 1 MG Tab PO SCH (09:33)
[2022-08-31] MEDS: METAMUCIL PO SCH ×2 (09:40→20:11)
[2022-08-31] MEDS: [UNRECOGNIZED DRUG - OTHER] PO SCH ×2 (09:40→20:11)
[2022-08-31] MEDS: NASACORT NASBOTH SCH (09:40)
[2022-08-31] MEDS: Acetaminophen 650 MG Tab.ER PO PRN (18:57)
[2022-08-31] MEDS: metFORMIN 500 MG Tab PO SCH (20:10)
[2022-08-31] MEDS: Tamsulosin 0.4 MG Cap.ER PO SCH (20:10)
[2022-09-01] MEDS: Cholecalciferol (Vitamin D3) 25 MCG Tab PO SCH (08:47)
[2022-09-01] MEDS: Acetaminophen 650 MG Tab.ER PO SCH ×2 (08:47→21:36)
[2022-09-01] MEDS: Multivitamins with Minerals/Iron/Folic Acid/Lycopene Tab PO SCH (08:47)
[2022-09-01] MEDS: Enoxaparin 40 MG/0.4 ML Syringe SUBCUT SCH (08:47)
[2022-09-01] MEDS: Losartan 50 MG Tab PO SCH (08:48)
[2022-09-01] MEDS: Rosuvastatin 10 MG Tab PO SCH (08:53)
[2022-09-01] MEDS: Finasteride 5 MG Tab PO SCH (08:54)
[2022-09-01] MEDS: Hydrochlorothiazide 25 MG Tab PO SCH (08:54)
[2022-09-01] MEDS: Metoprolol Succinate 25 MG Tab.ER PO SCH (08:54)
[2022-09-01] MEDS: Folic Acid 1 MG Tab PO SCH (08:54)
[2022-09-01] MEDS: Calcium Citrate/Vitamin D3 315 MG-250 Unit Tab PO SCH (08:55)
[2022-09-01] MEDS: [UNRECOGNIZED DRUG - OTHER] PO SCH ×2 (08:57→21:35)
[2022-09-01] MEDS: METAMUCIL PO SCH ×2 (08:57→21:35)
[2022-09-01] MEDS: NASACORT NASBOTH SCH (08:57)
[2022-09-01] MEDS ORDERED: Pantoprazole 20 MG Tab, Delayed Release PO SCH (09:22)
[2022-09-01] MEDS: Acetaminophen 650 MG Tab.ER PO PRN (13:00)
[2022-09-01] MEDS: Pantoprazole 20 MG Tab, Delayed Release PO SCH (21:35)
[2022-09-01] MEDS: Acetaminophen/oxyCODONE 325-5 MG Tab PO PRN (21:37)
[2022-09-01] MEDS: Tamsulosin 0.4 MG Cap.ER PO SCH (21:37)
[2022-09-01] MEDS: metFORMIN 500 MG Tab PO SCH (21:37)
[2022-09-01] MEDS: guaiFENesin 100 MG/5 ML Soln 5 ML UD Cup PO PRN (21:37)
[2022-09-02] MEDS: Acetaminophen 650 MG Tab.ER PO PRN (05:08)
[2022-09-02] MEDS: Enoxaparin 40 MG/0.4 ML Syringe SUBCUT SCH (09:19)
[2022-09-02] MEDS: Cholecalciferol (Vitamin D3) 25 MCG Tab PO SCH (09:22)
[2022-09-02] MEDS: Rosuvastatin 10 MG Tab PO SCH (09:22)
[2022-09-02] MEDS: Metoprolol Succinate 25 MG Tab.ER PO SCH (09:23)
[2022-09-02] MEDS: Losartan 50 MG Tab PO SCH (09:23)
[2022-09-02] MEDS: Finasteride 5 MG Tab PO SCH (09:23)
[2022-09-02] MEDS: Folic Acid 1 MG Tab PO SCH (09:23)
[2022-09-02] MEDS: Multivitamins with Minerals/Iron/Folic Acid/Lycopene Tab PO SCH (09:23)
[2022-09-02] MEDS: Hydrochlorothiazide 25 MG Tab PO SCH (09:23)
[2022-09-02] MEDS: Acetaminophen 650 MG Tab.ER PO SCH ×2 (09:24→20:33)
[2022-09-02] MEDS: Calcium Citrate/Vitamin D3 315 MG-250 Unit Tab PO SCH (09:24)
[2022-09-02] MEDS: NASACORT NASBOTH SCH (09:27)
[2022-09-02] MEDS: METAMUCIL PO SCH ×2 (09:28→20:34)
[2022-09-02] MEDS: [UNRECOGNIZED DRUG - OTHER] PO SCH ×2 (09:28→20:34)
[2022-09-02] MEDS: Cyclobenzaprine 5 MG Tab PO PRN ×2 (11:47→17:40)
[2022-09-02] MEDS: Acetaminophen/oxyCODONE 325-5 MG Tab PO PRN ×2 (14:08→20:33)
[2022-09-02] MEDS: metFORMIN 500 MG Tab PO SCH (20:34)
[2022-09-02] MEDS: Pantoprazole 20 MG Tab, Delayed Release PO SCH (20:34)
[2022-09-02] MEDS: Tamsulosin 0.4 MG Cap.ER PO SCH (20:34)
[2022-09-03 07:52] LABS: ANION GAP 12.5 mmol/L (5-15)
[2022-09-03] MEDS: Folic Acid 1 MG Tab PO SCH (08:06)
[2022-09-03] MEDS: Enoxaparin 40 MG/0.4 ML Syringe SUBCUT SCH (08:06)
[2022-09-03] MEDS: Calcium Citrate/Vitamin D3 315 MG-250 Unit Tab PO SCH (08:06)
[2022-09-03] MEDS: Rosuvastatin 10 MG Tab PO SCH (08:06)
[2022-09-03] MEDS: Hydrochlorothiazide 25 MG Tab PO SCH (08:06)
[2022-09-03] MEDS: Multivitamins with Minerals/Iron/Folic Acid/Lycopene Tab PO SCH (08:06)
[2022-09-03] MEDS: Cholecalciferol (Vitamin D3) 25 MCG Tab PO SCH (08:06)
[2022-09-03] MEDS: Metoprolol Succinate 25 MG Tab.ER PO SCH (08:07)
[2022-09-03] MEDS: Finasteride 5 MG Tab PO SCH (08:07)
[2022-09-03] MEDS: Acetaminophen 650 MG Tab.ER PO SCH ×2 (08:07→20:54)
[2022-09-03] MEDS: METAMUCIL PO SCH ×2 (08:08→20:55)
[2022-09-03] MEDS: [UNRECOGNIZED DRUG - OTHER] PO SCH ×2 (08:08→20:55)
[2022-09-03] MEDS: Losartan 50 MG Tab PO SCH (08:08)
[2022-09-03] MEDS: NASACORT NASBOTH SCH (08:09)
[2022-09-03] MEDS: Cyclobenzaprine 5 MG Tab PO PRN ×2 (08:50→22:17)
[2022-09-03] MEDS: Acetaminophen 650 MG Tab.ER PO PRN ×2 (14:00→17:49)
[2022-09-03] MEDS: Tamsulosin 0.4 MG Cap.ER PO SCH (20:54)
[2022-09-03] MEDS: metFORMIN 500 MG Tab PO SCH (20:54)
[2022-09-03] MEDS: Pantoprazole 20 MG Tab, Delayed Release PO SCH (20:54)
[2022-09-03] MEDS: guaiFENesin 100 MG/5 ML Soln 5 ML UD Cup PO PRN (22:25)
[2022-09-04] MEDS: Acetaminophen 650 MG Tab.ER PO PRN (03:09)
[2022-09-04] MEDS: Cholecalciferol (Vitamin D3) 25 MCG Tab PO SCH (09:24)
[2022-09-04] MEDS: Cyclobenzaprine 5 MG Tab PO PRN ×3 (09:26→22:01)
[2022-09-04] MEDS: Hydrochlorothiazide 25 MG Tab PO SCH (09:26)
[2022-09-04] MEDS: Folic Acid 1 MG Tab PO SCH (09:26)
[2022-09-04] MEDS: Finasteride 5 MG Tab PO SCH (09:26)
[2022-09-04] MEDS: Multivitamins with Minerals/Iron/Folic Acid/Lycopene Tab PO SCH (09:27)
[2022-09-04] MEDS: Acetaminophen 650 MG Tab.ER PO SCH ×2 (09:27→20:26)
[2022-09-04] MEDS: Calcium Citrate/Vitamin D3 315 MG-250 Unit Tab PO SCH (09:27)
[2022-09-04] MEDS: Losartan 50 MG Tab PO SCH (09:28)
[2022-09-04] MEDS: Metoprolol Succinate 25 MG Tab.ER PO SCH (09:28)
[2022-09-04] MEDS: Enoxaparin 40 MG/0.4 ML Syringe SUBCUT SCH (09:29)
[2022-09-04] MEDS: Rosuvastatin 10 MG Tab PO SCH (09:29)
[2022-09-04] MEDS: [UNRECOGNIZED DRUG - OTHER] PO SCH ×2 (09:32→20:25)
[2022-09-04] MEDS: guaiFENesin 100 MG/5 ML Soln 5 ML UD Cup PO PRN (09:32)
[2022-09-04] MEDS: METAMUCIL PO SCH ×2 (09:33→20:25)
[2022-09-04] MEDS: NASACORT NASBOTH SCH (09:33)
[2022-09-04] MEDS: Acetaminophen/oxyCODONE 325-5 MG Tab PO PRN (13:25)
[2022-09-04] MEDS: metFORMIN 500 MG Tab PO SCH (20:25)
[2022-09-04] MEDS: Pantoprazole 20 MG Tab, Delayed Release PO SCH (20:26)
[2022-09-04] MEDS: Tamsulosin 0.4 MG Cap.ER PO SCH (20:26)
[2022-09-05] MEDS: Acetaminophen 650 MG Tab.ER PO PRN (04:49)
[2022-09-05] MEDS: Multivitamins with Minerals/Iron/Folic Acid/Lycopene Tab PO SCH (08:28)
[2022-09-05] MEDS: Hydrochlorothiazide 25 MG Tab PO SCH (08:28)
[2022-09-05] MEDS: Rosuvastatin 10 MG Tab PO SCH (08:28)
[2022-09-05] MEDS: Calcium Citrate/Vitamin D3 315 MG-250 Unit Tab PO SCH (08:28)
[2022-09-05] MEDS: Finasteride 5 MG Tab PO SCH (08:28)
[2022-09-05] MEDS: Metoprolol Succinate 25 MG Tab.ER PO SCH (08:28)
[2022-09-05] MEDS: Losartan 50 MG Tab PO SCH (08:28)
[2022-09-05] MEDS: Folic Acid 1 MG Tab PO SCH (08:28)
[2022-09-05] MEDS: Acetaminophen 650 MG Tab.ER PO SCH ×2 (08:29→20:58)
[2022-09-05] MEDS: Enoxaparin 40 MG/0.4 ML Syringe SUBCUT SCH (08:30)
[2022-09-05] MEDS: Cholecalciferol (Vitamin D3) 25 MCG Tab PO SCH (08:30)
[2022-09-05] MEDS: NASACORT NASBOTH SCH (08:33)
[2022-09-05] MEDS: [UNRECOGNIZED DRUG - OTHER] PO SCH ×2 (08:33→20:59)
[2022-09-05] MEDS: METAMUCIL PO SCH ×2 (08:33→20:59)
[2022-09-05] MEDS: Cyclobenzaprine 5 MG Tab PO PRN (14:40)
[2022-09-05] MEDS: Pantoprazole 20 MG Tab, Delayed Release PO SCH (20:58)
[2022-09-05] MEDS: Tamsulosin 0.4 MG Cap.ER PO SCH (20:58)
[2022-09-05] MEDS: metFORMIN 500 MG Tab PO SCH (20:58)
[2022-09-05] MEDS: Acetaminophen/oxyCODONE 325-5 MG Tab PO PRN (20:58)
[2022-09-06] MEDS: Cyclobenzaprine 5 MG Tab PO PRN (06:12)
[2022-09-06] MEDS: Enoxaparin 40 MG/0.4 ML Syringe SUBCUT SCH (08:08)
[2022-09-06] MEDS: Folic Acid 1 MG Tab PO SCH (08:11)
[2022-09-06] MEDS: Metoprolol Succinate 25 MG Tab.ER PO SCH (08:11)
[2022-09-06] MEDS: Rosuvastatin 10 MG Tab PO SCH (08:11)
[2022-09-06] MEDS: Cholecalciferol (Vitamin D3) 25 MCG Tab PO SCH (08:11)
[2022-09-06] MEDS: Acetaminophen 650 MG Tab.ER PO SCH ×2 (08:11→20:07)
[2022-09-06] MEDS: Multivitamins with Minerals/Iron/Folic Acid/Lycopene Tab PO SCH (08:11)
[2022-09-06] MEDS: Calcium Citrate/Vitamin D3 315 MG-250 Unit Tab PO SCH (08:11)
[2022-09-06] MEDS: Finasteride 5 MG Tab PO SCH (08:11)
[2022-09-06] MEDS: Losartan 50 MG Tab PO SCH (08:11)
[2022-09-06] MEDS: Hydrochlorothiazide 25 MG Tab PO SCH (08:11)
[2022-09-06] MEDS: [UNRECOGNIZED DRUG - OTHER] PO SCH ×2 (08:12→20:08)
[2022-09-06] MEDS: NASACORT NASBOTH SCH (08:12)
[2022-09-06] MEDS: METAMUCIL PO SCH ×2 (08:12→20:08)
[2022-09-06] MEDS: Acetaminophen/oxyCODONE 325-5 MG Tab PO PRN (20:07)
[2022-09-06] MEDS: Tamsulosin 0.4 MG Cap.ER PO SCH (20:07)
[2022-09-06] MEDS: Pantoprazole 20 MG Tab, Delayed Release PO SCH (20:08)
[2022-09-06] MEDS: metFORMIN 500 MG Tab PO SCH (20:08)
[2022-09-07] MEDS: Rosuvastatin 10 MG Tab PO SCH ×2 (09:18→10:52)
[2022-09-07] MEDS: Multivitamins with Minerals/Iron/Folic Acid/Lycopene Tab PO SCH (09:18)
[2022-09-07] MEDS: Cholecalciferol (Vitamin D3) 25 MCG Tab PO SCH (09:18)
[2022-09-07] MEDS: Acetaminophen 650 MG Tab.ER PO SCH ×2 (09:19→20:18)
[2022-09-07] MEDS: Calcium Citrate/Vitamin D3 315 MG-250 Unit Tab PO SCH (09:20)
[2022-09-07] MEDS: Folic Acid 1 MG Tab PO SCH ×2 (09:20→10:52)
[2022-09-07] MEDS: Finasteride 5 MG Tab PO SCH ×2 (09:20→10:53)
[2022-09-07] MEDS: Hydrochlorothiazide 25 MG Tab PO SCH ×3 (09:21→10:54)
[2022-09-07] MEDS: Losartan 50 MG Tab PO SCH ×2 (09:21→10:52)
[2022-09-07] MEDS: Metoprolol Succinate 25 MG Tab.ER PO SCH ×2 (09:21→10:53)
[2022-09-07] MEDS: Enoxaparin 40 MG/0.4 ML Syringe SUBCUT SCH ×2 (09:22→10:53)
[2022-09-07] MEDS: [UNRECOGNIZED DRUG - OTHER] PO SCH ×2 (09:24→20:21)
[2022-09-07] MEDS: METAMUCIL PO SCH ×2 (09:24→20:21)
[2022-09-07] MEDS: NASACORT NASBOTH SCH (09:25)
[2022-09-07] MEDS: metFORMIN 500 MG Tab PO SCH ×2 (10:52→20:18)
[2022-09-07] MEDS: Tamsulosin 0.4 MG Cap.ER PO SCH ×2 (10:53→20:17)
[2022-09-07] MEDS: Acetaminophen/oxyCODONE 325-5 MG Tab PO PRN (13:20)
[2022-09-07] MEDS: Famotidine 20 MG Tab PO SCH (20:19)
[2022-09-08] MEDS: Acetaminophen/oxyCODONE 325-5 MG Tab PO PRN ×2 (04:00→21:03)
[2022-09-08] MEDS: Cyclobenzaprine 5 MG Tab PO PRN ×2 (06:25→18:10)
[2022-09-08] MEDS: Cholecalciferol (Vitamin D3) 25 MCG Tab PO SCH (08:37)
[2022-09-08] MEDS: Finasteride 5 MG Tab PO SCH ×7 (08:38→10:19)
[2022-09-08] MEDS: Calcium Citrate/Vitamin D3 315 MG-250 Unit Tab PO SCH (08:38)
[2022-09-08] MEDS: Hydrochlorothiazide 25 MG Tab PO SCH ×8 (08:38→10:18)
[2022-09-08] MEDS: Multivitamins with Minerals/Iron/Folic Acid/Lycopene Tab PO SCH (08:38)
[2022-09-08] MEDS: Folic Acid 1 MG Tab PO SCH ×7 (08:39→10:18)
[2022-09-08] MEDS: Acetaminophen 650 MG Tab.ER PO SCH ×2 (08:39→20:12)
[2022-09-08] MEDS: Rosuvastatin 10 MG Tab PO SCH ×7 (08:39→10:19)
[2022-09-08] MEDS: METAMUCIL PO SCH ×2 (08:40→20:13)
[2022-09-08] MEDS: NASACORT NASBOTH SCH (08:40)
[2022-09-08] MEDS: [UNRECOGNIZED DRUG - OTHER] PO SCH ×2 (08:40→20:13)
[2022-09-08] MEDS: Enoxaparin 40 MG/0.4 ML Syringe SUBCUT SCH ×7 (08:45→10:18)
[2022-09-08] MEDS: Losartan 50 MG Tab PO SCH ×7 (08:45→10:19)
[2022-09-08] MEDS: Metoprolol Succinate 25 MG Tab.ER PO SCH ×6 (08:45→10:18)
[2022-09-08] MEDS: Tamsulosin 0.4 MG Cap.ER PO SCH ×6 (10:13→20:12)
[2022-09-08] MEDS: metFORMIN 500 MG Tab PO SCH ×6 (10:13→20:12)
[2022-09-08] MEDS: Famotidine 20 MG Tab PO SCH (20:13)
[2022-09-09] MEDS: NASACORT NASBOTH SCH (08:05)
[2022-09-09] MEDS: Finasteride 5 MG Tab PO SCH (08:05)
[2022-09-09] MEDS: Calcium Citrate/Vitamin D3 315 MG-250 Unit Tab PO SCH (08:05)
[2022-09-09] MEDS: Folic Acid 1 MG Tab PO SCH (08:05)
[2022-09-09] MEDS: METAMUCIL PO SCH ×2 (08:05→20:21)
[2022-09-09] MEDS: Acetaminophen 650 MG Tab.ER PO SCH ×2 (08:05→20:22)
[2022-09-09] MEDS: Multivitamins with Minerals/Iron/Folic Acid/Lycopene Tab PO SCH (08:05)
[2022-09-09] MEDS: Hydrochlorothiazide 25 MG Tab PO SCH (08:05)
[2022-09-09] MEDS: [UNRECOGNIZED DRUG - OTHER] PO SCH ×2 (08:05→20:21)
[2022-09-09] MEDS: Cholecalciferol (Vitamin D3) 25 MCG Tab PO SCH (08:05)
[2022-09-09] MEDS: Rosuvastatin 10 MG Tab PO SCH (08:05)
[2022-09-09] MEDS: Enoxaparin 40 MG/0.4 ML Syringe SUBCUT SCH (08:08)
[2022-09-09] MEDS: Losartan 50 MG Tab PO SCH (08:12)
[2022-09-09] MEDS: Metoprolol Succinate 25 MG Tab.ER PO SCH (08:12)
[2022-09-09] MEDS: Cyclobenzaprine 5 MG Tab PO PRN ×2 (10:12→20:22)
[2022-09-09] MEDS: Tamsulosin 0.4 MG Cap.ER PO SCH (20:21)
[2022-09-09] MEDS: metFORMIN 500 MG Tab PO SCH (20:22)
[2022-09-09] MEDS: Famotidine 20 MG Tab PO SCH (20:22)
[2022-09-09] MEDS: Acetaminophen/oxyCODONE 325-5 MG Tab PO PRN (21:18)
[2022-09-10] MEDS: Acetaminophen 650 MG Tab.ER PO PRN (04:22)
[2022-09-10] MEDS: Enoxaparin 40 MG/0.4 ML Syringe SUBCUT SCH (08:08)
[2022-09-10] MEDS: METAMUCIL PO SCH ×2 (08:08→20:19)
[2022-09-10] MEDS: NASACORT NASBOTH SCH (08:08)
[2022-09-10] MEDS: [UNRECOGNIZED DRUG - OTHER] PO SCH ×2 (08:08→20:20)
[2022-09-10] MEDS: Acetaminophen/oxyCODONE 325-5 MG Tab PO PRN (08:08)
[2022-09-10] MEDS: Rosuvastatin 10 MG Tab PO SCH (08:09)
[2022-09-10] MEDS: Calcium Citrate/Vitamin D3 315 MG-250 Unit Tab PO SCH (08:09)
[2022-09-10] MEDS: Finasteride 5 MG Tab PO SCH (08:09)
[2022-09-10] MEDS: Cholecalciferol (Vitamin D3) 25 MCG Tab PO SCH (08:09)
[2022-09-10] MEDS: Hydrochlorothiazide 25 MG Tab PO SCH (08:09)
[2022-09-10] MEDS: Acetaminophen 650 MG Tab.ER PO SCH ×2 (08:10→20:19)
[2022-09-10] MEDS: Metoprolol Succinate 25 MG Tab.ER PO SCH (08:10)
[2022-09-10] MEDS: Cyclobenzaprine 5 MG Tab PO PRN ×2 (08:11→18:06)
[2022-09-10] MEDS: Multivitamins with Minerals/Iron/Folic Acid/Lycopene Tab PO SCH (08:11)
[2022-09-10] MEDS: Losartan 50 MG Tab PO SCH (08:11)
[2022-09-10] MEDS: Folic Acid 1 MG Tab PO SCH (08:11)
[2022-09-10] MEDS: Tamsulosin 0.4 MG Cap.ER PO SCH (20:19)
[2022-09-10] MEDS: metFORMIN 500 MG Tab PO SCH (20:19)
[2022-09-10] MEDS: Famotidine 20 MG Tab PO SCH (20:19)
[2022-09-11] MEDS: Cholecalciferol (Vitamin D3) 25 MCG Tab PO SCH (08:43)
[2022-09-11] MEDS: [UNRECOGNIZED DRUG - OTHER] PO SCH ×2 (08:43→20:06)
[2022-09-11] MEDS: NASACORT NASBOTH SCH (08:43)
[2022-09-11] MEDS: METAMUCIL PO SCH ×2 (08:43→20:06)
[2022-09-11] MEDS: Multivitamins with Minerals/Iron/Folic Acid/Lycopene Tab PO SCH (08:45)
[2022-09-11] MEDS: Hydrochlorothiazide 25 MG Tab PO SCH (08:45)
[2022-09-11] MEDS: Acetaminophen 650 MG Tab.ER PO SCH ×2 (08:46→20:07)
[2022-09-11] MEDS: Rosuvastatin 10 MG Tab PO SCH (08:46)
[2022-09-11] MEDS: Finasteride 5 MG Tab PO SCH (08:47)
[2022-09-11] MEDS: Folic Acid 1 MG Tab PO SCH (08:47)
[2022-09-11] MEDS: Calcium Citrate/Vitamin D3 315 MG-250 Unit Tab PO SCH (08:47)
[2022-09-11] MEDS: Losartan 50 MG Tab PO SCH (08:48)
[2022-09-11] MEDS: Enoxaparin 40 MG/0.4 ML Syringe SUBCUT SCH (08:49)
[2022-09-11] MEDS: Metoprolol Succinate 25 MG Tab.ER PO SCH (08:49)
[2022-09-11] MEDS: metFORMIN 500 MG Tab PO SCH (20:06)
[2022-09-11] MEDS: Famotidine 20 MG Tab PO SCH (20:07)
[2022-09-11] MEDS: Tamsulosin 0.4 MG Cap.ER PO SCH (20:08)
[2022-09-11] MEDS: Cyclobenzaprine 5 MG Tab PO PRN (20:08)
[2022-09-11] MEDS: Acetaminophen/oxyCODONE 325-5 MG Tab PO PRN (22:03)
[2022-09-12] MEDS: NASACORT NASBOTH SCH (08:48)
[2022-09-12] MEDS: METAMUCIL PO SCH ×2 (08:48→20:59)
[2022-09-12] MEDS: [UNRECOGNIZED DRUG - OTHER] PO SCH ×2 (08:48→20:59)
[2022-09-12] MEDS: Calcium Citrate/Vitamin D3 315 MG-250 Unit Tab PO SCH (08:49)
[2022-09-12] MEDS: Hydrochlorothiazide 25 MG Tab PO SCH (08:49)
[2022-09-12] MEDS: Multivitamins with Minerals/Iron/Folic Acid/Lycopene Tab PO SCH (08:49)
[2022-09-12] MEDS: Finasteride 5 MG Tab PO SCH (08:49)
[2022-09-12] MEDS: Acetaminophen 650 MG Tab.ER PO SCH ×2 (08:49→20:58)
[2022-09-12] MEDS: Folic Acid 1 MG Tab PO SCH (08:50)
[2022-09-12] MEDS: Rosuvastatin 10 MG Tab PO SCH (08:50)
[2022-09-12] MEDS: Cyclobenzaprine 5 MG Tab PO PRN ×2 (08:50→19:40)
[2022-09-12] MEDS: Cholecalciferol (Vitamin D3) 25 MCG Tab PO SCH (08:50)
[2022-09-12] MEDS: Metoprolol Succinate 25 MG Tab.ER PO SCH (08:52)
[2022-09-12] MEDS: Losartan 50 MG Tab PO SCH (08:52)
[2022-09-12] MEDS: Enoxaparin 40 MG/0.4 ML Syringe SUBCUT SCH (08:54)
[2022-09-12] MEDS: Acetaminophen/oxyCODONE 325-5 MG Tab PO PRN (10:18)
[2022-09-12] MEDS: metFORMIN 500 MG Tab PO SCH (20:58)
[2022-09-12] MEDS: Tamsulosin 0.4 MG Cap.ER PO SCH (20:58)
[2022-09-12] MEDS: Famotidine 20 MG Tab PO SCH (20:59)
[2022-09-13] MEDS: Acetaminophen/oxyCODONE 325-5 MG Tab PO PRN ×2 (03:34→21:28)
[2022-09-13] MEDS: NASACORT NASBOTH SCH (08:51)
[2022-09-13] MEDS: METAMUCIL PO SCH ×2 (08:51→20:25)
[2022-09-13] MEDS: [UNRECOGNIZED DRUG - OTHER] PO SCH ×2 (08:51→20:25)
[2022-09-13] MEDS: Rosuvastatin 10 MG Tab PO SCH (08:52)
[2022-09-13] MEDS: Cholecalciferol (Vitamin D3) 25 MCG Tab PO SCH (08:52)
[2022-09-13] MEDS: Metoprolol Succinate 25 MG Tab.ER PO SCH (08:53)
[2022-09-13] MEDS: Calcium Citrate/Vitamin D3 315 MG-250 Unit Tab PO SCH (08:54)
[2022-09-13] MEDS: Folic Acid 1 MG Tab PO SCH (08:54)
[2022-09-13] MEDS: Losartan 50 MG Tab PO SCH (08:54)
[2022-09-13] MEDS: Hydrochlorothiazide 25 MG Tab PO SCH (08:54)
[2022-09-13] MEDS: Finasteride 5 MG Tab PO SCH (08:54)
[2022-09-13] MEDS: Enoxaparin 40 MG/0.4 ML Syringe SUBCUT SCH (08:55)
[2022-09-13] MEDS: Acetaminophen 650 MG Tab.ER PO SCH ×2 (08:55→20:25)
[2022-09-13] MEDS: Multivitamins with Minerals/Iron/Folic Acid/Lycopene Tab PO SCH (08:57)
[2022-09-13] MEDS: Cyclobenzaprine 5 MG Tab PO PRN ×2 (11:27→17:56)
[2022-09-13] MEDS: Tamsulosin 0.4 MG Cap.ER PO SCH (20:25)
[2022-09-13] MEDS: Famotidine 20 MG Tab PO SCH (20:25)
[2022-09-13] MEDS: metFORMIN 500 MG Tab PO SCH (20:26)
[2022-09-14] MEDS: Acetaminophen 650 MG Tab.ER PO PRN (03:25)
[2022-09-14] MEDS: METAMUCIL PO SCH ×2 (08:22→20:18)
[2022-09-14] MEDS: [UNRECOGNIZED DRUG - OTHER] PO SCH ×2 (08:22→20:18)
[2022-09-14] MEDS: Calcium Citrate/Vitamin D3 315 MG-250 Unit Tab PO SCH (08:27)
[2022-09-14] MEDS: Cholecalciferol (Vitamin D3) 25 MCG Tab PO SCH (08:27)
[2022-09-14] MEDS: Folic Acid 1 MG Tab PO SCH (08:27)
[2022-09-14] MEDS: Finasteride 5 MG Tab PO SCH (08:27)
[2022-09-14] MEDS: Enoxaparin 40 MG/0.4 ML Syringe SUBCUT SCH (08:27)
[2022-09-14] MEDS: Rosuvastatin 10 MG Tab PO SCH (08:28)
[2022-09-14] MEDS: Multivitamins with Minerals/Iron/Folic Acid/Lycopene Tab PO SCH (08:28)
[2022-09-14] MEDS: Hydrochlorothiazide 25 MG Tab PO SCH (08:28)
[2022-09-14] MEDS: Acetaminophen 650 MG Tab.ER PO SCH ×2 (08:28→20:18)
[2022-09-14] MEDS: Metoprolol Succinate 25 MG Tab.ER PO SCH (08:32)
[2022-09-14] MEDS: Losartan 50 MG Tab PO SCH (08:32)
[2022-09-14] MEDS: NASACORT NASBOTH SCH (08:34)
[2022-09-14] MEDS: Cyclobenzaprine 5 MG Tab PO PRN ×2 (11:53→19:02)
[2022-09-14] MEDS: Tamsulosin 0.4 MG Cap.ER PO SCH (20:18)
[2022-09-14] MEDS: Famotidine 20 MG Tab PO SCH (20:19)
[2022-09-14] MEDS: metFORMIN 500 MG Tab PO SCH (20:19)
[2022-09-14] MEDS: Acetaminophen/oxyCODONE 325-5 MG Tab PO PRN (21:44)
[2022-09-15] MEDS: Cholecalciferol (Vitamin D3) 25 MCG Tab PO SCH (08:22)
[2022-09-15] MEDS: Metoprolol Succinate 25 MG Tab.ER PO SCH (08:23)
[2022-09-15] MEDS: Rosuvastatin 10 MG Tab PO SCH (08:23)
[2022-09-15] MEDS: Multivitamins with Minerals/Iron/Folic Acid/Lycopene Tab PO SCH (08:24)
[2022-09-15] MEDS: Acetaminophen 650 MG Tab.ER PO SCH ×2 (08:24→20:41)
[2022-09-15] MEDS: Folic Acid 1 MG Tab PO SCH (08:24)
[2022-09-15] MEDS: Calcium Citrate/Vitamin D3 315 MG-250 Unit Tab PO SCH (08:24)
[2022-09-15] MEDS: Finasteride 5 MG Tab PO SCH (08:24)
[2022-09-15] MEDS: Hydrochlorothiazide 25 MG Tab PO SCH (08:25)
[2022-09-15] MEDS: METAMUCIL PO SCH ×2 (08:25→20:42)
[2022-09-15] MEDS: NASACORT NASBOTH SCH (08:25)
[2022-09-15] MEDS: [UNRECOGNIZED DRUG - OTHER] PO SCH ×2 (08:25→20:42)
[2022-09-15] MEDS: Enoxaparin 40 MG/0.4 ML Syringe SUBCUT SCH (08:25)
[2022-09-15] MEDS: Losartan 50 MG Tab PO SCH (08:26)
[2022-09-15] MEDS: Cyclobenzaprine 5 MG Tab PO PRN (11:05)
[2022-09-15] MEDS: Tamsulosin 0.4 MG Cap.ER PO SCH (20:41)
[2022-09-15] MEDS: Acetaminophen/oxyCODONE 325-5 MG Tab PO PRN (20:41)
[2022-09-15] MEDS: Famotidine 20 MG Tab PO SCH (20:41)
[2022-09-15] MEDS: metFORMIN 500 MG Tab PO SCH (20:41)
[2022-09-16 07:57] LABS: ANION GAP 13.4 mmol/L (5-15)
[2022-09-16] MEDS: Acetaminophen 650 MG Tab.ER PO SCH ×2 (08:31→20:37)
[2022-09-16] MEDS: Multivitamins with Minerals/Iron/Folic Acid/Lycopene Tab PO SCH (08:31)
[2022-09-16] MEDS: Cholecalciferol (Vitamin D3) 25 MCG Tab PO SCH (08:31)
[2022-09-16] MEDS: Hydrochlorothiazide 25 MG Tab PO SCH (08:31)
[2022-09-16] MEDS: Calcium Citrate/Vitamin D3 315 MG-250 Unit Tab PO SCH (08:32)
[2022-09-16] MEDS: Metoprolol Succinate 25 MG Tab.ER PO SCH (08:32)
[2022-09-16] MEDS: Losartan 50 MG Tab PO SCH (08:32)
[2022-09-16] MEDS: Folic Acid 1 MG Tab PO SCH (08:32)
[2022-09-16] MEDS: Rosuvastatin 10 MG Tab PO SCH (08:32)
[2022-09-16] MEDS: Finasteride 5 MG Tab PO SCH (08:32)
[2022-09-16] MEDS: [UNRECOGNIZED DRUG - OTHER] PO SCH ×2 (08:33→20:37)
[2022-09-16] MEDS: NASACORT NASBOTH SCH (08:33)
[2022-09-16] MEDS: METAMUCIL PO SCH ×2 (08:34→20:37)
[2022-09-16] MEDS: Cyclobenzaprine 5 MG Tab PO PRN (08:37)
[2022-09-16] MEDS: Enoxaparin 40 MG/0.4 ML Syringe SUBCUT SCH (08:38)
[2022-09-16] MEDS: Acetaminophen/oxyCODONE 325-5 MG Tab PO PRN ×2 (12:41→21:52)
[2022-09-16] MEDS: Tamsulosin 0.4 MG Cap.ER PO SCH (20:37)
[2022-09-16] MEDS: metFORMIN 500 MG Tab PO SCH (20:38)
[2022-09-16] MEDS: Famotidine 20 MG Tab PO SCH (20:38)
[2022-09-17] MEDS: Hydrochlorothiazide 25 MG Tab PO SCH (08:26)
[2022-09-17] MEDS: Multivitamins with Minerals/Iron/Folic Acid/Lycopene Tab PO SCH (08:26)
[2022-09-17] MEDS: Rosuvastatin 10 MG Tab PO SCH (08:26)
[2022-09-17] MEDS: Folic Acid 1 MG Tab PO SCH (08:26)
[2022-09-17] MEDS: Calcium Citrate/Vitamin D3 315 MG-250 Unit Tab PO SCH (08:26)
[2022-09-17] MEDS: Finasteride 5 MG Tab PO SCH (08:26)
[2022-09-17] MEDS: Cholecalciferol (Vitamin D3) 25 MCG Tab PO SCH (08:26)
[2022-09-17] MEDS: Losartan 50 MG Tab PO SCH (08:28)
[2022-09-17] MEDS: Metoprolol Succinate 25 MG Tab.ER PO SCH (08:28)
[2022-09-17] MEDS: Acetaminophen 650 MG Tab.ER PO SCH (08:28)
[2022-09-17] MEDS: Acetaminophen/oxyCODONE 325-5 MG Tab PO PRN (08:29)
[2022-09-17] MEDS: [UNRECOGNIZED DRUG - OTHER] PO SCH (08:29)
[2022-09-17] MEDS: NASACORT NASBOTH SCH (08:29)
[2022-09-17] MEDS: METAMUCIL PO SCH (08:30)
[2022-09-17] MEDS: Enoxaparin 40 MG/0.4 ML Syringe SUBCUT SCH (08:32)
[2022-09-21] MEDS ORDERED: Aspirin 81 MG Tab.EC PO SCH (09:00)
== END 2022-09-17 11:55 | disposition home or self-care (01) | DRG 559 ==
LOC: KA.MS 14:00
PROVIDERS: ADMIT Nurse Practitioner Family; ATTEND Family Medicine
DX: S72.141D Displaced intertrochanteric fracture of right femur, subsequent encounter for closed fracture with routine healing (principal); U07.1 COVID-19; D62 Acute posthemorrhagic anemia; E46 Unspecified protein-calorie malnutrition; W07.XXXD Fall from chair, subsequent encounter; I25.10 Atherosclerotic heart disease of native coronary artery without angina pectoris; E11.9 Type 2 diabetes mellitus without complications; M81.0 Age-related osteoporosis without current pathological fracture; K21.9 Gastro-esophageal reflux disease without esophagitis; G56.02 Carpal tunnel syndrome, left upper limb; I10 Essential (primary) hypertension; N40.0 Benign prostatic hyperplasia without lower urinary tract symptoms; K59.00 Constipation, unspecified; E78.5 Hyperlipidemia, unspecified; E04.1 Nontoxic single thyroid nodule; M19.90 Unspecified osteoarthritis, unspecified site; H91.93 Unspecified hearing loss, bilateral; Z85.46 Personal history of malignant neoplasm of prostate; Z79.82 Long term (current) use of aspirin; Z79.899 Other long term (current) drug therapy; I25.2 Old myocardial infarction; Z95.5 Presence of coronary angioplasty implant and graft; Z88.0 Allergy status to penicillin; Z68.28 Body mass index [BMI] 28.0-28.9, adult
CPT/HCPCS: 36415; 80048; 80053; 85025; 97110-GP; 97530-GP; A9270-GY; J1650